=== PATIENT | male | born 1985 ===

== ENCOUNTER 2023-04-10 12:43 | Inpatient (IN) | payer MEDICAID, OTHER, SELFPAY ==
[2023-04-10] VITALS (11 sets, daily range): BP systolic 117–132; BP diastolic 70–79; PULSE 80–112; RESP 16–19; TEMP 36.7–39.5; O2SAT 97–98; BMI 33.6; BMI 34.9
--- NOTE | ~2023-04-10 | CT_ITS ---
EXAMINATION: CT ABDOMEN AND PELVIS WITH CONTRAST CLINICAL INFORMATION: Right lower quadrant abdominal pain COMPARISON: None available. TECHNIQUE: Multidetector volumetric images were obtained from the superior aspect of the liver through the pubic symphysis following administration 85 mL of Omnipaque 350 intravenous contrast. Sagittal and coronal reformatted images were obtained on the technologist's workstation. Oral contrast: No This CT examination was performed using dose optimization techniques as appropriate, variously including the following: *Automated exposure control *Adjustment of mA and/or kV according to patient size (this includes techniques or standardized protocols for targeted exams where dose is matched to indication/reason for exam; i.e. extremities or head) *Use of iterative reconstruction technique DLP: 573 mGy-cm FINDINGS: LUNG BASES: There is bilateral lower lobe atelectasis/scarring. The heart size is normal. LIVER, GALLBLADDER, AND BILIARY TREE: The liver is normal size, shape and diffusely attenuated. No focal lesion or intrahepatic ductal dilatation seen. The gallbladder is unremarkable with no evidence of radiopaque gallstones, gallbladder wall thickening, or obvious pericholecystic inflammatory changes. PANCREAS: Unremarkable. SPLEEN: Unremarkable. ADRENAL GLANDS: Unremarkable. KIDNEYS AND URETERS: The kidneys are normal in size, shape, and attenuation. No hydronephrosis, hydroureter, or calculi seen. No perinephric stranding. BLADDER: Unremarkable. GASTROINTESTINAL TRACT: The appendix is long and distended. Appendix fat stranding and focal air collection consistent perforation. Findings are consistent with acute appendicitis. There are a few phleboliths in the appendix This is best appreciated on coronal image 27/6-34/6 and sagittal image 80/7 through 69/7. There is mild stasis and distention of the cecum and minimal right perihepatic and pericecal fluid collection. There is small bowel stasis as well with multiple dilated small bowel loops. The stomach is nondistended and appears unremarkable. Diffuse haziness likely edema or inflammation is seen throughout the peritoneal in the midabdomen. ABDOMINAL WALL: No significant hernia is appreciated. LYMPH NODES: Normal. VASCULAR: Unremarkable. PELVIC VISCERA: Unremarkable. OSSEOUS STRUCTURES: Unremarkable. CT/CT abdomen pelvis w IV con IMPRESSION: Distended long appendix with acute appendicitis with perforation resulting in loculated air-fluid collection. Small fluid collection is seen around the liver and pelvis. There is significant mesenteric haziness likely inflammatory change. There is reactive dilation of small bowel loops and cecum. As well as reactive mild mural thickening of sigmoid colon is noted. Diffuse hepatic steatosis without distention. Results were immediately called to referring /[employer]ENT INSTALLER Warren Anderson at 4:12 PM. Fleischner guidelines were followed.
--- NOTE | ~2023-04-10 | XR_ITS ---
EXAMINATION: XR ABDOMEN KUB CLINICAL INDICATION: Postoperative ileus COMPARISON: Previous CT of the abdomen and pelvis 04/10/2023 TECHNIQUE: AP view of the abdomen. FINDINGS: Nasogastric tube projects over the stomach. Air-filled distended loops of small bowel probably representing an ileus. Surgical drain in the pelvis and lower midline skin chas. No definite free air. Bony structures are normal. XR/XR KUB IMPRESSION: Probable postoperative ileus.
--- NOTE | ~2023-04-10 | CT_ITS ---
EXAMINATION: CT ABDOMEN AND PELVIS WITH CONTRAST CLINICAL INFORMATION: Postop ileus. Status post appendectomy. COMPARISON: CT abdomen and pelvis 04/10/2023 TECHNIQUE: Multidetector volumetric images were obtained from the superior aspect of the liver through the pubic symphysis following administration 85 mL of Omnipaque 350 intravenous contrast. Sagittal and coronal reformatted images were obtained on the technologist's workstation. Oral contrast: No This CT examination was performed using dose optimization techniques as appropriate, variously including the following: *Automated exposure control *Adjustment of mA and/or kV according to patient size (this includes techniques or standardized protocols for targeted exams where dose is matched to indication/reason for exam; i.e. extremities or head) *Use of iterative reconstruction technique DLP: 493 mGy-cm FINDINGS: LUNG BASES: There is bilateral lower lobe dependent consolidation/atelectasis. Heart size is normal. LIVER, GALLBLADDER, AND BILIARY TREE: The liver is normal in size, shape, and diffuse hypo-attenuation. The liver is diffusely attenuated from focal fatty infiltration. No intrahepatic ductal dilatation seen. There is minimal perihepatic fluid. The gallbladder is unremarkable with no evidence of radiopaque gallstones, gallbladder wall thickening, or obvious pericholecystic inflammatory changes. PANCREAS: Unremarkable. SPLEEN: Unremarkable. ADRENAL GLANDS: Unremarkable. KIDNEYS AND URETERS: The kidneys are normal in size, shape, and attenuation. No hydronephrosis, hydroureter, or calculi seen. No perinephric stranding. BLADDER: Unremarkable. GASTROINTESTINAL TRACT: Appendix has been removed. There is a long [place] drain extending from the pelvis into the left upper quadrant.. Punctate scattered gas is seen in left pelvis and mid abdomen from recent surgery. There are multiple dilated small bowel loops and right colon likely ileus. A nasogastric tube tip is noted in the stomach. ABDOMINAL WALL: Postsurgical changes are seen in lower anterior midline abdomen. Prominent left inguinal canal with fat is noted. LYMPH NODES: Normal. VASCULAR: Unremarkable. PELVIC VISCERA: Unremarkable. OSSEOUS STRUCTURES: No aggressive lytic or sclerotic process seen. CT/CT abdomen pelvis w IV con IMPRESSION: Interval appendectomy with diffuse right colonic and small bowel ileus. Postsurgical punctate gas is seen scattered in the pelvis and abdomen with minimal right hepatic fluid collection. There is bilateral lower lobe dependent consolidation/atelectasis which has progressed since 04/10/2023. Diffuse fatty liver. Fleischner guidelines were followed.
--- NOTE | 2023-04-10 13:11 | ED.GENADULT ---
HPI - General Adult General Chief complaint: Abdominal Pain Stated complaint: Fever/Diarrhea/Nausea Time Seen by Provider: 04/10/23 14:53 Source: patient and contract management specialist Mode of arrival: ambulatory Limitations: no limitations History of Present Illness HPI narrative: 29-year-old French-speaking male with no medical history presents to the ER for evaluation of worsening right lower quadrant abdominal pain for the last 3 days. He developed nausea and vomiting 3 days ago which has since resolved. He states he has been having significant episodes of dark loose and watery stools. He states the pain in his right lower abdomen has been worsening for the last 3 days. The pain is worse with movement and ambulation. Pain is an 8/10, it is constant and stabbing in nature. He has been having subjective fevers and chills as well. No known sick contacts at home. MD complaint: Right lower quadrant abdominal pain, nausea, vomiting, diarrhea Onset (ago): day(s) (3) Location: abdomen Radiation: non-radiation Severity: severe Severity scale (1-10): 8 Quality: stabbing Pain Consistency: constant Relieving factors: none Exacerbating factors: movement Associated symptoms: fever/chills, loss of appetite, malaise, nausea/vomiting and weakness Treatments prior to arrival: none Related Data Home Medications Medication Instructions Recorded Confirmed bismuth subsalicylate 525 mg/15 mL 525 mg PO Q30M PRN Diarrhea / 04/10/23 04/10/23 oral suspension upset stomach ibuprofen 200 mg tablet 400 mg PO Q8H PRN Pain 04/10/23 04/10/23 Allergies Allergy/AdvReac Type Severity Reaction Status Date / Time No Known Allergies Allergy Verified 04/10/23 13:07 Review of Systems Review of Systems: Yes all other systems are reviewed and are negative [facility] Social History Social History Smoked in Last 30 Days: Yes Use of substances other than those prescribed or required for medical reasons: No Advance Directives: No Physical Exam ED Vital Signs: Vital Signs - 24 hr 04/10/23 13:07 04/10/23 14:52 04/10/23 17:05 Temperature 98.6 F 103.1 F H 101.3 F H Pulse Rate 112 H 80 Respiratory Rate 16 18 Blood Pressure 117/76 123/70 Pulse Oximetry 98 98 Oxygen Delivery Method Room Air Room Air BMI result Body Mass Index 33.6 Appearance: Alert. Oriented X3. Appears uncomfortable and in pain Head: normocephalic, atraumatic. Eyes: Pupils equal, round and reactive to light. ENT: Pharynx normal. No tonsillar swelling or exudate. Neck: Normal inspection. Neck supple. CVS: Tachycardic, regular rhythm Pulses normal. Respiratory: No respiratory distress. Breath sounds normal. Abdomen: abd is somewhat tense w/ RLQ tenderness to light touch w/ guarding and rebound, normal active +BS x4 Skin: Skin warm and dry. Normal skin color. Normal skin turgor. No rashes. Extremities: No lower extremity edema. No joint swelling. Neuro/psych: Oriented X 3. No motor deficit. No sensory deficit. CN II-XII intact. Normal speech and cognition. Slow but steady gait Course Course Course Narrative: RME: 37 yold male RLQ abdominal pain, fever, diarrhea for 3 days. No one else at home sick. Labs ordered Medications Administered Generic Name Dose Route Start Last Admin Trade Name Freq PRN Reason Stop Dose Admin Lactated Ringer's 1,000 mls @ 100 mls/hr 04/10/23 17:00 04/10/23 17:01 Lr IVCONT 100 mls/hr .Q10H YESICA Administration Discontinued Medications Generic Name Dose Route Start Last Admin Trade Name Freq PRN Reason Stop Dose Admin Acetaminophen 975 mg 04/10/23 14:54 04/10/23 15:33 Acetaminophen 325 Mg Tablet PO 04/10/23 14:55 975 mg ONCE ONE Administration Sodium Chloride 1,000 mls @ 999 mls/hr 04/10/23 15:00 04/10/23 17:06 Ns IVCONT 04/10/23 16:00 Infused .Q1H1M YESICA Infusion Piperacillin Sod/Tazobactam 50 mls @ 100 mls/hr 04/10/23 14:55 04/10/23 16:02 Sod 3.375 gm/ Sodium Chloride IV 04/10/23 15:24 Infused ONCE ONE Infusion Sodium Chloride 1,000 mls @ 999 mls/hr 04/10/23 15:00 04/10/23 17:06 Ns IVCONT 04/10/23 16:00 Infused .Q1H1M YESICA Infusion Iohexol 100 ml 04/10/23 14:48 04/10/23 14:49 Iohexol 350 Mg/Ml 100 Ml Infus..Btl IV 04/10/23 14:49 85 ml ONCE ONE Administration Morphine Sulfate 4 mg 04/10/23 15:15 04/10/23 15:31 Morphine Sulfate 4 Mg/Ml Cartridge IVPUSH 04/10/23 15:16 4 mg ONCE ONE Administration Protocol Ondansetron HCl 4 mg 04/10/23 15:15 04/10/23 15:32 Ondansetron Hcl 4 Mg/2 Ml Vial IVPUSH 04/10/23 15:16 4 mg ONCE ONE Administration Medical Decision Making Medical Decision Making [facility] Narrative: 29-year-old male with no medical history presents to the ER for evaluation of 3 days of worsening right lower quadrant pain, fever, nausea, vomiting, diarrhea. He is febrile to 103 on examination with a very tender right lower quadrant on exam. He is tense and guarding with rebound tenderness. Lab workup showing a leukocytosis of 22,000. CT scan w/ perforated appendix. Dr. Mendoza aware and evaluated the patient. plan for admission with CT guided drainage. continue abx, ivf, pain control. Differential Diagnosis Differential Diagnoses: The differential diagnosis associated with the presentation includes Acute appendicitis, appendiceal rupture, diverticulitis, abdominal abscess, acute cholecystitis, sepsis, UTI, pyelonephritis, infected kidney stone Admission/Observation Consideration of admission/observation: Escalation of care including admission/observation considered Patient meeting sepsis criteria requiring admission for further management and pain control Consult Healthcare Provider Management of the patient was discussed with: Senior Clinical Project Manager Dr. Mendoza Lab Data [facility] Lab Attestation statement: I reviewed the patient's lab results. Leukocytosis, mild anemia 04/10/23 13:25 04/10/23 13:25 Labs: Lab Results 04/10/23 04/10/23 04/10/23 Range/Units 13:25 13:25 13:25 WBC 22.0 H (4.8-10.8) X10*3/uL RBC 4.41 L (4.60-5.80) X10*6/uL Hgb 13.4 L (14.0-18.0) g/dl Hct 39.2 L (42.0-52.0) % MCV 88.9 (80.0-98.0) fL MCH 30.4 (27.0-33.0) pg MCHC 34.2 (31.0-36.0) g/dl RDW 11.7 (11.0-16.0) % Plt Count 203 (160-400) X10*3/uL MPV 10.6 (9.4-12.4) fL Immature Gran % (Auto) 1.2 H (0.0-0.4) % Neut % (Auto) 88.4 H (45-73) % Lymph % (Auto) 3.9 L (20-40) % [place] % (Auto) 6.3 (2-11) % Eos % (Auto) 0.0 (0-4) % Baso % (Auto) 0.2 (0-2) % Lymph # (Auto) 0.9 L (1.2-4.9) X10*3/uL [place] # (Auto) 1.4 H (0.1-1.2) X10*3/uL Eos # (Auto) 0.0 (0.0-0.4) X10*3/uL Baso # (Auto) 0.0 (0.0-0.2) X10*3/uL Abs Immat Gran (auto) 0.27 H (0.00-0.03) X10*3/uL Absolute Neuts (auto) 19.5 H (2.0-8.3) x10*3/uL Absolute Nucleated RBC 0.000 (0.0-0.012) X10*3/uL Nucleated RBC % (auto) 0.0 (0.0-0.2) /100WBC Sodium 134 L (135-145) mmol/L Potassium 3.8 (3.3-5.1) mmol/L Chloride 101 (96-108) mmol/L Carbon Dioxide 24 (22-29) mmol/L Anion Gap 13 (12-20) BUN 12 (9-16) mg/dL Creatinine 0.81 (0.5-1.4) mg/dL Estim Creat Clear Calc 115.5 Estimated GFR > 60 Random Glucose 125 H (60-115) mg/dL Calcium 9.6 (8.4-10.2) mg/dL Total Bilirubin 1.2 H (0.0-1.0) mg/dL AST 24 (5-37) U/L ALT 42 H (0-40) U/L Alkaline Phosphatase 87 (39-117) U/L Total Protein 7.6 (6.5-8.0) g/dL Albumin 4.3 (3.5-5.0) g/dL Lipase 11 (8-78) U/L Urine Color Urine Appearance Urine pH (5.0-9.0) Ur Specific [place] (1.005-1.025) Urine Protein (Neg-Trace) mg/dL Urine Glucose (UA) (Negative) mg/dL Urine Ketones (Negative) mg/dL Urine Blood (Negative) Urine Nitrite (Negative) Ur Leukocyte Esterase (Negative) Urine RBC (0-2) /HPF Urine WBC (0-5) /HPF Ur Squamous Epith Cells (0-2) /HPF Urine Bacteria (None Seen) Hyaline Casts (0-2) /LPF COVID-19 (LAZARO) (Negative) COVID-19 Clin Com Influenza Type A (CRISTINA) Negative (Negative) Influenza Type B (CRISTINA) Negative (Negative) Influenza A & B Note See Note 04/10/23 04/10/23 Range/Units 13:25 13:25 WBC (4.8-10.8) X10*3/uL RBC (4.60-5.80) X10*6/uL Hgb (14.0-18.0) g/dl Hct (42.0-52.0) % MCV (80.0-98.0) fL MCH (27.0-33.0) pg MCHC (31.0-36.0) g/dl RDW (11.0-16.0) % Plt Count (160-400) X10*3/uL MPV (9.4-12.4) fL Immature Gran % (Auto) (0.0-0.4) % Neut % (Auto) (45-73) % Lymph % (Auto) (20-40) % [place] % (Auto) (2-11) % Eos % (Auto) (0-4) % Baso % (Auto) (0-2) % Lymph # (Auto) (1.2-4.9) X10*3/uL [place] # (Auto) (0.1-1.2) X10*3/uL Eos # (Auto) (0.0-0.4) X10*3/uL Baso # (Auto) (0.0-0.2) X10*3/uL Abs Immat Gran (auto) (0.00-0.03) X10*3/uL Absolute Neuts (auto) (2.0-8.3) x10*3/uL Absolute Nucleated RBC (0.0-0.012) X10*3/uL Nucleated RBC % (auto) (0.0-0.2) /100WBC Sodium (135-145) mmol/L Potassium (3.3-5.1) mmol/L Chloride (96-108) mmol/L Carbon Dioxide (22-29) mmol/L Anion Gap (12-20) BUN (9-16) mg/dL Creatinine (0.5-1.4) mg/dL Estim Creat Clear Calc Estimated GFR Random Glucose (60-115) mg/dL Calcium (8.4-10.2) mg/dL Total Bilirubin (0.0-1.0) mg/dL AST (5-37) U/L ALT (0-40) U/L Alkaline Phosphatase (39-117) U/L Total Protein (6.5-8.0) g/dL Albumin (3.5-5.0) g/dL Lipase (8-78) U/L Urine Color Dark Yellow Urine Appearance Clear Urine pH 6.0 (5.0-9.0) Ur Specific [place] 1.020 (1.005-1.025) Urine Protein 100 (2+) H (Neg-Trace) mg/dL Urine Glucose (UA) Negative (Negative) mg/dL Urine Ketones 15 (Negative) mg/dL Urine Blood Negative (Negative) Urine Nitrite Negative (Negative) Ur Leukocyte Esterase Trace H (Negative) Urine RBC 0-2 (0-2) /HPF Urine WBC 0-5 (0-5) /HPF Ur Squamous Epith Cells 0-2 (0-2) /HPF Urine Bacteria None Seen (None Seen) Hyaline Casts 3-5 (0-2) /LPF COVID-19 (LAZARO) Negative (Negative) COVID-19 Clin Com See Note Influenza Type A (CRISTINA) (Negative) Influenza Type B (CRISTINA) (Negative) Influenza A & B Note Independent Interpretation I performed an independent interpretation of an: CT Scan Interpretation: significant fluid collection in the RLQ c/w appendicitis w/ rupture, agree w/ radiology read Radiology Impression Discussion of test interpretation with radiology: I have reviewed the radiologist's reading. Radiologist Impression: EXAMINATION: CT ABDOMEN AND PELVIS WITH CONTRAST? CLINICAL INFORMATION: Right lower quadrant abdominal pain COMPARISON: None available. TECHNIQUE: Multidetector volumetric images were obtained from the superior aspect of the liver through the pubic symphysis following administration 85 mL of Omnipaque 350 intravenous contrast. Sagittal and coronal reformatted images were obtained on the technologist's workstation.? Oral contrast: No This CT examination was performed using dose optimization techniques as appropriate, variously including the following: *Automated exposure control *Adjustment of mA and/or kV according to patient size (this includes techniques or standardized protocols for targeted exams where dose is matched to indication/reason for exam; i.e. extremities or head) *Use of iterative reconstruction technique DLP: 573 mGy-cm FINDINGS: LUNG BASES: There is bilateral lower lobe atelectasis/scarring. The heart size is normal.? LIVER, GALLBLADDER, AND BILIARY TREE: The liver is normal size, shape and diffusely attenuated. No focal lesion or intrahepatic ductal dilatation seen. The gallbladder is unremarkable with no evidence of radiopaque gallstones, gallbladder wall thickening, or obvious pericholecystic inflammatory changes.? PANCREAS: Unremarkable.? SPLEEN: Unremarkable.? ADRENAL GLANDS: Unremarkable.? KIDNEYS AND URETERS: The kidneys are normal in size, shape, and attenuation. No hydronephrosis, hydroureter, or calculi seen. No perinephric stranding. ? BLADDER: Unremarkable.? GASTROINTESTINAL TRACT: The appendix is long and distended. Appendix fat stranding and focal air collection consistent perforation. Findings are consistent with acute appendicitis. There are a few phleboliths in the appendix This is best appreciated on coronal image 27/6-34/6 and sagittal image 80/7 through 69/7. There is mild stasis and distention of the cecum and minimal right perihepatic and pericecal fluid collection. There is small bowel stasis as well with multiple dilated small bowel loops. The stomach is nondistended and appears unremarkable. Diffuse haziness likely edema or inflammation is seen throughout the peritoneal in the midabdomen. ABDOMINAL WALL: No significant hernia is appreciated.? LYMPH NODES: Normal. VASCULAR: Unremarkable. PELVIC VISCERA: Unremarkable.? OSSEOUS STRUCTURES: Unremarkable.? CT/CT abdomen pelvis w IV con IMPRESSION: Distended long appendix with acute appendicitis with perforation resulting in loculated air-fluid collection. Small fluid collection is seen around the liver and pelvis. There is significant mesenteric haziness likely inflammatory change. There is reactive dilation of small bowel loops and? cecum. As well as reactive mild mural thickening of sigmoid colon is noted. Independent Historian Clinical information obtained from an independent historian. History obtained from or confirmed by: Spouse Prescription Management I considered prescription management with: Pain Medication and Antibiotic Critical Care Time Critical Care Time Critical Care Time: Yes Total Critical Care Time: 39 Attestation: I have personally provided critical care time exclusive of time spent on separately billable procedures. Time includes review of lab data, radiology results, discussion with consultants, and monitoring for potential decompensation. Intervention performed as documented. Discharge Plan Discharge Clinical Impression: Acute appendicitis with rupture Patient Disposition: Admitted As Inpatient
[2023-04-10 13:37] LABS: MANUAL DIFF FLAG NO
[2023-04-10 13:39] LABS: Basophils Percent Auto 0.2 % (0-2); Hematocrit 39.2 % (42.0-52.0); Hemoglobin 13.4 g/dl (14.0-18.0); Imm Gran Abs Auto 0.27 X10*3/uL (0.00-0.03); Imm Gran Pct Auto 1.2 % (0.0-0.4); Lymphocytes Absolute Auto 0.9 X10*3/uL (1.2-4.9); Lymphocytes Percent Auto 3.9 % (20-40); Mean Corpuscular HGB Conc 34.2 g/dl (31.0-36.0); Mean Corpuscular Hemoglobin 30.4 pg (27.0-33.0); Mean Corpuscular Volume 88.9 fL (80.0-98.0); Mean Platelet Volume 10.6 fL (9.4-12.4); Monocytes Absolute Auto 1.4 X10*3/uL (0.1-1.2); Monocytes Percent Auto 6.3 % (2-11); Neutrophils Absolute Auto 19.5 x10*3/uL (2.0-8.3); Neutrophils Percent Auto 88.4 % (45-73); Platelet Count 203 X10*3/uL (160-400); Red Blood Count 4.41 X10*6/uL (4.60-5.80); Red Cell Distribution Width 11.7 % (11.0-16.0)
[2023-04-10 13:40] LABS: Appearance Urine Clear; Color Urine Dark Yellow; Glucose Urine UA Negative (Negative); Leukocyte Esterase Urine Trace (Negative); Nitrite Urine Negative (Negative); UMIC TRIGGER UACC YES; Urine Blood Negative (Negative); Urine Ketones 15 mg/dL (Negative); Urine Protein 100 (2+) mg/dL (Neg-Trace)
[2023-04-10 13:42] LABS: Bacteria Urine None Seen (None Seen); RBC Urine 0-2 /HPF (0-2); Squamous Epithelial Cell Urine 0-2 /HPF (0-2); WBC Urine 0-5 /HPF (0-5)
[2023-04-10 13:54] LABS: COVID-19 Test Negative (Negative); IDNOW Serial# 08D9AD1C
[2023-04-10 13:56] LABS: IDNOW Serial# BCCEAD1C; Influenza A Negative (Negative); Influenza B2 Negative (Negative)
[2023-04-10 14:14] LABS: Alanine Aminotransferase 42 U/L (0-40); Albumin Level 4.3 g/dL (3.5-5.0); Alkaline Phosphatase 87 U/L (39-117); Anion Gap 13 (12-20); Aspartate Amino Transferase 24 U/L (5-37); Bilirubin Total 1.2 mg/dL (0.0-1.0); Blood Urea Nitrogen 12 mg/dL (9-16); Calcium 9.6 mg/dL (8.4-10.2); Carbon Dioxide 24 mmol/L (22-29); Chloride 101 mmol/L (96-108); Creatinine Clr Calc Pharmacy 115.5; Estimated Glomerular Filt Rate > 60; Glucose Random 125 mg/dL (60-115); Lipase 11 U/L (8-78); Potassium 3.8 mmol/L (3.3-5.1); Sodium 134 mmol/L (135-145); Total Protein 7.6 g/dL (6.5-8.0)
[2023-04-10] MEDS: iohexoL 350 MG/ML 100 ML INFUS..BTL IV (14:49)
--- NOTE | 2023-04-10 15:03 | PC.NURSE ---
Alert and oriented, patient only lithuanian speaking. Information obtained via regulatory compliance director. Patient complaining of 8/10 right sided abdominal pain. States pain and blood in urine. States pain started on tuesday with n/v/d and has not gotten any better. temp 102.1 , provider aware. IV in right forearm flushing without difficulty.
[2023-04-10] MEDS: Morphine Sulfate 4 MG/ML CARTRIDGE IVPUSH ×2 (15:31→21:05)
[2023-04-10] MEDS: Piperacillin Sodium/Tazobactam 3.375 GM in 0.9 % Sodium Chloride 50 ML IV ×2 (15:32→23:03)
[2023-04-10] MEDS: ondansetron HCL 4 MG/2 ML VIAL IVPUSH (15:32)
[2023-04-10] MEDS: Acetaminophen 325 MG TABLET 975 MG PO (15:33)
[2023-04-10] MEDS: 0.9 % Sodium Chloride 1,000 ML 999 ML IVCONT ×2 (15:34→16:00)
--- NOTE | 2023-04-10 16:20 | P.HPGS_ITS ---
History of Present Illness History of Present Illness Date of Service: 04/12/23 Chief complaint: perforated appendicitis Narrative: Dayron Torres is a 37 year old male here in the ED for right sided abdominal pain x 3 days. He says this has been persistent. He describes some nausea and vomitting 2 days ago. He feels that the pain on the right side has been worsening. He says he has never had similar episodes in the past. He denies signficant medical problems. He has never had abdominal surgery He does have some chills at home. He also describes some loose stools. He does not have any primary care physician. Review of Systems Constitutional: Constitutional: Reports chills and Reports fever(s) Cardiovascular: Cardiovascular: Denies chest pain, Denies dyspnea and Denies dyspnea on exertion Respiratory: Respiratory: Denies cough, Denies dyspnea and Denies dyspnea on exertion Gastrointestinal: Gastrointestinal: Denies hematochezia and Denies change in bowel habits Genitourinary: Genitourinary: Denies hematuria and Denies difficulty urinating Musculoskeletal: Musculoskeletal: Denies back pain and Denies limited range of motion Neurologic: Denies focal weakness and Denies convulsions Psychiatric: Psychiatric: Denies depression and Denies mood swings PMFSH Social History Social History Household Members: Spouse Housing: House Do you presently have visiting nurse or other home services: No Patient Tobacco Use Status: Never used Tobacco Smoked in Last 30 Days: Yes Use of substances other than those prescribed or required for medical reasons: No Currently Displaying Signs/Symptoms of Drug Intoxication Withdrawal: No Have you been hit, kicked, punched, or otherwise hurt by someone within the past year? If so, by whom?: No Do you feel safe in your current relationship?: Yes Is there a partner from a previous relationship who is making you feel unsafe now?: No Are you made to feel afraid or neglected: No Advance Directives: No Advance Directives Information Provided: No Do you have thoughts of harming others: None Do you have a plan to hurt others: No Plan Recently lost weight without trying: No Eating poorly because of decreased appetite: No Nutrition Risks: No Nutritional Risk Poor oral hygiene: No service: No Meds Allergies Allergy/AdvReac Type Severity Reaction Status Date / Time No Known Allergies Allergy Verified 04/10/23 13:07 Active Medications: Current Medications Pharmacy Consult (Consult Rx Perform Med Rec) 1 each MISCELLANE ONCE PRN PRN Reason: Consult order Home Medications Medication Instructions Recorded Confirmed Last Taken Type bismuth subsalicylate 525 mg/15 mL 525 mg PO Q30M PRN Diarrhea / 04/10/23 04/10/23 Unknown History oral suspension upset stomach ibuprofen 200 mg tablet 400 mg PO Q8H PRN Pain 04/10/23 04/10/23 Unknown History Physical Exam Vital Signs: Vital Signs: Last Vital Signs Temp 103.1 F H 04/10/23 14:52 Pulse 80 04/10/23 14:52 Resp 18 04/10/23 14:52 BP 123/70 04/10/23 14:52 Pulse Ox 98 04/10/23 14:52 O2 Del Method Room Air 04/10/23 14:52 BMI result Body Mass Index 33.6 Const: Other: appears uncomfortable General: no acute distress Orientation/consciousness: patient oriented x3 Neck: Neck: Yes no lymphadenopathy Resp: Auscultation: clear to auscultation bilaterally Cardio: Rhythm: regular rhythm GI: Other: very tender on the right abdomen Palpation (GI): Soft to palpation, Tenderness to palpation present (GI), Guarding due to palpation present (GI) and not rigid Neuro: General: patient oriented x3 Results Results Labs: Short CBC 04/10/23 Range/Units 13:25 WBC 22.0 H (4.8-10.8) X10*3/uL Hgb 13.4 L (14.0-18.0) g/dl Hct 39.2 L (42.0-52.0) % Plt Count 203 (160-400) X10*3/uL BMP 04/10/23 13:25 Sodium 134 L Potassium 3.8 Chloride 101 Carbon Dioxide 24 BUN 12 Creatinine 0.81 Calcium 9.6 Liver Function 04/10/23 Range/Units 13:25 Total Bilirubin 1.2 H (0.0-1.0) mg/dL AST 24 (5-37) U/L ALT 42 H (0-40) U/L Alkaline Phosphatase 87 (39-117) U/L Albumin 4.3 (3.5-5.0) g/dL Urine 04/10/23 Range/Units 13:25 Urine Color Dark Yellow Urine Appearance Clear Urine pH 6.0 (5.0-9.0) Ur Specific [place] 1.020 (1.005-1.025) Urine Protein 100 (2+) H (Neg-Trace) mg/dL Urine Glucose (UA) Negative (Negative) mg/dL Assessment and Plan (1) Acute appendicitis with rupture: Status: Acute 37-year-old male with right-sided abdominal pain, fever, leukocytosis, and significant tenderness. I have reviewed his CAT scan with the radiologist. This is consistent with perforated appendicitis. This a lot of inflammatory changes in the appendix and the cecum. There may be small pockets of abscesses in the area as well. I explained to the patient that it may be best to proceed with laparoscopic appendectomy and possible open. He understands that because of the dense inflammatory changes, there is a high likelihood that he may need to proceed with the laparotomy incision. There is a chance that we may need to resect part of the cecum as well because of the severe inflammatory changes . I also explained to him the risks including but not limited to bleeding, infections, injury to other organs including the rest of the bowel, urinary tract, staple line leak, blood clots, pneumonia, obstruction, ileus, as well as the benefits and alternatives. He seems to understand well and wants to proceed His was with him during the discussion. Time Spent With Patient Time: Total time managing care of this patient today ____ minutes. Quality Stroke Does the patient have a stroke diagnosis?: No VTE Prior VTE?: No VTE Risk Level:: Medical - low VTE Device Contraindication: N/A - Device Ordered VTE Drug Contraindication: Treatment Not Indicated Procedures Date of Service Date of Service: 04/12/23
[2023-04-10] MEDS: Lactated Ringers 1,000 ML 100 ML IVCONT (17:01)
--- NOTE | 2023-04-10 17:11 | PHA.MEDREC ---
Pharmacy Consult ? Medication Reconciliation Pharmacy has completed the medication reconciliation. Utilized glass belt s[employer] services. Spoke to patient to confirm meds.
--- NOTE | 2023-04-10 17:35 | P.CONAN_ITS ---
[facility] Active Problems Active Problems: All Active Problems (Updated 04/10/23 @ 16:20 by AASHISH Andrade) Acute appendicitis with rupture (Acute) Past Medical History Functional capacity: independent ambulation Social History Social History Smoked in Last 30 Days: Yes Use of substances other than those prescribed or required for medical reasons: No Advance Directives: No Meds Allergies Allergy/AdvReac Type Severity Reaction Status Date / Time No Known Allergies Allergy Verified 04/10/23 13:07 Active Medications: Current Medications Lactated Ringer's (Lr) 1,000 mls @ 100 mls/hr IVCONT .Q10H YESICA Last Admin: 04/10/23 17:01 Dose: 100 mls/hr Piperacillin Sod/Tazobactam (Sod 3.375 gm/ Sodium Chloride) 50 mls @ 100 mls/hr IV Q6H YESICA Morphine Sulfate (Morphine Sulfate 4 Mg/Ml Cartridge) 4 mg IVPUSH Q4H PRN; Protocol PRN Reason: pain, severe Pharmacy Consult (Consult Rx Perform Med Rec) 1 each MISCELLANE ONCE PRN PRN Reason: Consult order Sodium Chloride (0.9 % Sodium Chloride Flush 3 Ml Syringe) 3 ml IVFLUSH QSHIFT YESICA Home Medications Medication Instructions Recorded Confirmed Last Taken Type bismuth subsalicylate 525 mg/15 mL 525 mg PO Q30M PRN Diarrhea / 04/10/23 04/10/23 Unknown History oral suspension upset stomach ibuprofen 200 mg tablet 400 mg PO Q8H PRN Pain 04/10/23 04/10/23 Unknown History Exam Exam Date and Time: April 10, 2023 0765 Height,Weight and Vital Signs: Height 5 ft 2 in Weight 83.3 kg Last Vital Signs Temp 101.3 F H 04/10/23 17:05 Pulse 80 04/10/23 14:52 Resp 18 04/10/23 14:52 BP 123/70 04/10/23 14:52 Pulse Ox 98 04/10/23 14:52 O2 Del Method Room Air 04/10/23 14:52 Pertinent Lab Results Pertinent Lab Results: Laboratory Tests 04/10/23 04/10/23 04/10/23 13:25 13:25 13:25 WBC 22.0 H RBC 4.41 L Hgb 13.4 L Hct 39.2 L MCV 88.9 MCH 30.4 MCHC 34.2 RDW 11.7 Plt Count 203 MPV 10.6 Immature Gran % (Auto) 1.2 H Neut % (Auto) 88.4 H Lymph % (Auto) 3.9 L [place] % (Auto) 6.3 Eos % (Auto) 0.0 Baso % (Auto) 0.2 Lymph # (Auto) 0.9 L [place] # (Auto) 1.4 H Eos # (Auto) 0.0 Baso # (Auto) 0.0 Abs Immat Gran (auto) 0.27 H Absolute Neuts (auto) 19.5 H Absolute Nucleated RBC 0.000 Nucleated RBC % (auto) 0.0 Sodium 134 L Potassium 3.8 Chloride 101 Carbon Dioxide 24 Anion Gap 13 BUN 12 Creatinine 0.81 Estim Creat Clear Calc 115.5 Estimated GFR > 60 Random Glucose 125 H Calcium 9.6 Total Bilirubin 1.2 H AST 24 ALT 42 H Alkaline Phosphatase 87 Total Protein 7.6 Albumin 4.3 Lipase 11 Urine Color Urine Appearance Urine pH Ur Specific [place] Urine Protein Urine Glucose (UA) Urine Ketones Urine Blood Urine Nitrite Ur Leukocyte Esterase Urine RBC Urine WBC Ur Squamous Epith Cells Urine Bacteria Hyaline Casts COVID-19 (LAZARO) COVID-19 Clin Com Influenza Type A (CRISTINA) Negative Influenza Type B (CRISTINA) Negative Influenza A & B Note See Note 04/10/23 04/10/23 13:25 13:25 WBC RBC Hgb Hct MCV MCH MCHC RDW Plt Count MPV Immature Gran % (Auto) Neut % (Auto) Lymph % (Auto) [place] % (Auto) Eos % (Auto) Baso % (Auto) Lymph # (Auto) [place] # (Auto) Eos # (Auto) Baso # (Auto) Abs Immat Gran (auto) Absolute Neuts (auto) Absolute Nucleated RBC Nucleated RBC % (auto) Sodium Potassium Chloride Carbon Dioxide Anion Gap BUN Creatinine Estim Creat Clear Calc Estimated GFR Random Glucose Calcium Total Bilirubin AST ALT Alkaline Phosphatase Total Protein Albumin Lipase Urine Color Dark Yellow Urine Appearance Clear Urine pH 6.0 Ur Specific [place] 1.020 Urine Protein 100 (2+) H Urine Glucose (UA) Negative Urine Ketones 15 Urine Blood Negative Urine Nitrite Negative Ur Leukocyte Esterase Trace H Urine RBC 0-2 Urine WBC 0-5 Ur Squamous Epith Cells 0-2 Urine Bacteria None Seen Hyaline Casts 3-5 COVID-19 (LAZARO) Negative COVID-19 Clin Com See Note Influenza Type A (CRISTINA) Influenza Type B (CRISTINA) Influenza A & B Note Airway Mallampati Class: III TM Dist: >3cm Neck ROM: Full Heart: RRR Lungs: CTA Assessment and Plan Final Anesthetic Review Final Preanesthetic Review: Consent Obtained/Reviewed Patient Risk: Intermediate Procedure Risk: Intermediate Anesthetic Plan Anesthetic Plan: GA Disposition: Standard PACU
--- NOTE | 2023-04-10 18:01 | PC.NURSE ---
Report given to OR, transferred to OR by surgical team
--- NOTE | 2023-04-10 19:47 | P.OP_ITS ---
Operative Note Operative Note Date of Service: 04/10/23 Narrative: Preop diagnosis: Acute perforated appendicitis Postop diagnosis: Acute perforated appendicitis, with feculent and purulent collection, gangrenous appendix surrounded by matted loops of small bowel and mesentery and surrounding peritonitis; extraluminal stool around appendix seen Procedure: Attempted laparoscopic appendectomy, converted to open appendectomy via laparotomy incision Surgeon: Kingsley Mendoza MD The patient is a 37-year-old male seen in the ER because of abdominal pain on the right side for the past 3 days along with high fever and septic picture. CT scan showed perforated appendicitis with significant inflammatory changes surrounding the appendix and fluid collection. He understood the technique of appendectomy. He was aware of the risks, benefits, and alternatives He was brought the operating room. He was placed supine under general anesthesia via endotracheal tube. He was receiving scheduled Zosyn. A surgical time-out was done. A Arambula catheter been inserted I made a short supraumbilical incision using blade 15. And this was carried down through the full-thickness of the skin and thick subcutaneous fat down to the fascia. The fascia was incised. The peritoneum was entered. Through this incision a Carole port was introduced. Pneumoperitoneum was introduced to a pressure of 15 mm hg. From here on the rest of the procedure was done under vision with the 10 mm laparoscope. With laparoscopic visualization I inserted a 5/12 mm port on the left lower quadrant through a small stab incision. A 5 mm port was placed through a small incision in the suprapubic margin. Graspers were placed through these working ports The patient was placed in head-down and [id number] position. There was note of significant small bowel dilatation. The small bowel loops appeared to be matted and adherent to the mid abdomen and we could not achieve any adequate visualization nor safe mobilization so I medially decided that he had to convert to an open procedure. I made a generous midline incision a low abdomen using blade 10. And his care down with electrocautery through the full-thickness of the skin subcutaneous fat. This included the umbilical port site. I removed all ports at this point I divided to thick subcutaneous fat until a expose the fascia. The fascia was incised. The peritoneum was entered. The fascial incision extended to optimize the skin incision. Bookwalter retractors were applied Immediately, feculent smelling and purulent fluid was noted in the abdomen and we did cultures The up small-bowel was very matted in the mid abdomen. We had to do careful blunt dissection to separate the small bowel loops from within its other and there was note of more peritoneal fluid that appeared to be frequent and purulent in the mid abdomen. We had to do a lot of careful mobilization to separate the bowel loops until was able to see the retroperitoneal side of the mid abdomen and this was worried found the maximal inflammatory process. There was note of surrounding peritonitis including of the serosal side of the small bowel loops as well as the mesentery. There was note of thin feculent-looking fluid and pus within this area. We had to carefully suction this out and by doing so I was able to visualize what appeared to be gangrenous and perforated appendix. This was adherent to the posterior side of the mesentery of the adjacent small bowel loops and stuck to the retroperitoneum as well so wet to do careful blunt dissection with the finger to be able to visualize the entire appendix. I was able to eventually visualize the base. I proceeded to mobilize the entire appendix using the LigaSure to carefully separate and resected from its attached mesentery. I reached the base of the appendix. There was still a lot of heavy inflammatory changes in the area. I was able to pass a right angle clamp around the base of the appendix and this part although inflamed appear viable. I applied a right angle clamp at the base. I applied a suture ligature using a a Polysorb 3-0 stitch. I then ligated this as well using up Polysorb 2 0 tie. I imbricated the stump with seromuscular Polysorb 3-0 sutures to the serosa of the surrounding cecum Again this area appeared viable despite being inflamed with reactive peritonitis. I re-irrigated copiously and suctioned out irrigant fluid. I irrigated the pelvis as well as there was note of purulent fluid in this area as initially. Once the irrigant fluid appeared clear, I placed bowel loops back into the peritoneal cavity. I changed gloves. I applied a KWESI drain on the area of the stump of the appendix and this was brought out through the port site on the left lower quadrant port earlier, traversing into the pelvis 1st. I closed the fascia with the running Maxon 1 stitch. Skin closure was achieved on the incision with skin chas. I infiltrated the area with Marcaine 0.5% for postop analgesia. The KWESI drain had been secured to the skin with an anchori ng nylon 3-0 stitch. The procedure was then completed after application of dressings. The patient tolerated procedure well. There were no immediate complications. Initial and final counts of sponges and instruments were correct. Estimated blood loss about 25 cc The patient was extubated without difficulty and transferred to the recovery room with stable vital signs.
[2023-04-10] MEDS: Acetaminophen 1,000 MG/100 ML PIGGYBACK 400 MG IV (20:06)
[2023-04-10 20:16] LABS: CDiff Gene PCR NEGATIVE (Negative)
[2023-04-10] MEDS: fentaNYL citrate/PF 100 MCG/2 ML VIAL 25 MCG IVPUSH ×2 (20:27→20:33)
[2023-04-10] MEDS: oxyCODONE HCl Immed Release 5 MG TABLET 10 MG PO (22:52)
[2023-04-10] MEDS: 0.9 % Sodium Chloride Flush 3 ML SYRINGE IVFLUSH (23:01)
[2023-04-11] MEDS: Acetaminophen 1,000 MG/100 ML PIGGYBACK 400 MG IV ×4 (01:51→20:36)
[2023-04-11] MEDS: Piperacillin Sodium/Tazobactam 3.375 GM in 0.9 % Sodium Chloride 50 ML IV ×4 (03:14→21:08)
[2023-04-11] MEDS: Lactated Ringers 1,000 ML 100 ML IVCONT ×2 (03:46→12:22)
[2023-04-11 04:00] VITALS: BP 103/64; PULSE 74; RESP 19; TEMP 36.6; O2SAT 97
[2023-04-11 07:43] VITALS: BP 107/62; PULSE 71; RESP 16; TEMP 36.1; O2SAT 96
--- NOTE | 2023-04-11 08:26 | P.PNGS_ITS ---
Subjective Subjective Date of Service: 04/11/23 Interval history: states he feels much better pain control seems adequate Physical Exam Vital Signs: Vital Signs: Last Vital Signs Temp 96.9 F 04/11/23 07:43 Pulse 71 04/11/23 07:43 Resp 16 04/11/23 07:43 BP 107/62 04/11/23 07:43 Pulse Ox 96 04/11/23 07:43 O2 Del Method Nasal Cannula 04/11/23 07:43 O2 Flow Rate 2 04/11/23 07:43 BMI result Body Mass Index 34.9 Const: General: comfortable and no acute distress Resp: Effort & Inspection: normal respiratory effort Cardio: Rate: regular rate GI: Other: dressings dry, KWESI drain serosanguinous Palpation (GI): Soft to palpation, not firm and no guarding Objective Data Active Medications Fentanyl (Fentanyl Citrate/Pf 100 Mcg/2 Ml Vial) 25 mcg IVPUSH Q5M PRN; Protocol PRN Reason: Pain, Moderate(Pain Scale 4-6) Last Admin: 04/10/23 20:33 Dose: 25 mcg Documented By: ROBBIE Lactated Ringer's (Lr) 1,000 mls @ 100 mls/hr IVCONT .Q10H [facility] Last Admin: 04/11/23 03:46 Dose: 100 mls/hr Documented By: AMIRAH Piperacillin Sod/Tazobactam (Sod 3.375 gm/ Sodium Chloride) 50 mls @ 100 mls/hr IV Q6H [facility] Last Infusion: 04/11/23 03:45 Dose: 0 mls/hr Documented By: AMIRAH Acetaminophen (irmev) 1,000 mg in 100 mls @ 400 mls/hr IV Q6H [facility] Stop: 04/11/23 20:14 Last Infusion: 04/11/23 02:13 Dose: 0 mls/hr Documented By: AMIRAH Morphine Sulfate (Morphine Sulfate 4 Mg/Ml Cartridge) 4 mg IVPUSH Q4H PRN; Protocol PRN Reason: pain, severe Last Admin: 04/10/23 21:05 Dose: 4 mg Documented By: AMIRAH Ondansetron HCl (Ondansetron Hcl 4 Mg/2 Ml Vial) 4 mg IVPUSH ONCE PRN PRN Reason: Nausea and Vomiting Ondansetron HCl (Ondansetron Hcl 4 Mg/2 Ml Vial) 4 mg IVPUSH Q8H PRN PRN Reason: nausea Oxycodone HCl (Oxycodone Hcl Immed Release 5 Mg Tablet) 10 mg PO Q4H PRN PRN Reason: pain, moderate Last Admin: 04/10/23 22:52 Dose: 10 mg Documented By: AMIRAH Pharmacy Consult (Consult Rx Perform Med Rec) 1 each MISCELLANE ONCE PRN PRN Reason: Consult order Sodium Chloride (0.9 % Sodium Chloride Flush 3 Ml Syringe) 3 ml IVFLUSH [facility] Last Admin: 04/10/23 23:01 Dose: 3 ml Documented By: AMIRAH Labs 04/10/23 13:25 04/10/23 13:25 Labs: Laboratory Results - last 24 hr 04/10/23 04/10/23 04/10/23 13:25 13:25 13:25 MCV 88.9 MCH 30.4 MCHC 34.2 RDW 11.7 Plt Count 203 MPV 10.6 Immature Gran % (Auto) 1.2 H Neut % (Auto) 88.4 H Lymph % (Auto) 3.9 L [place] % (Auto) 6.3 Eos % (Auto) 0.0 Baso % (Auto) 0.2 Lymph # (Auto) 0.9 L [place] # (Auto) 1.4 H Eos # (Auto) 0.0 Baso # (Auto) 0.0 Abs Immat Gran (auto) 0.27 H Absolute Neuts (auto) 19.5 H Absolute Nucleated RBC 0.000 Nucleated RBC % (auto) 0.0 Anion Gap 13 Estim Creat Clear Calc 115.5 Estimated GFR > 60 Random Glucose 125 H Lactic Acid Calcium 9.6 Total Bilirubin 1.2 H AST 24 ALT 42 H Alkaline Phosphatase 87 Total Protein 7.6 Albumin 4.3 Lipase 11 Urine Color Urine Appearance Urine pH Ur Specific [place] Urine Protein Urine Glucose (UA) Urine Ketones Urine Blood Urine Nitrite Ur Leukocyte Esterase Urine RBC Urine WBC Ur Squamous Epith Cells Urine Bacteria Hyaline Casts C. difficile Tox B Gene COVID-19 (LAZARO) COVID-19 Clin Com Influenza Type A (CRISTINA) Negative Influenza Type B (CRISTINA) Negative Influenza A & B Note See Note Blood Type Antibody Screen 04/10/23 04/10/23 04/10/23 13:25 13:25 17:55 MCV MCH MCHC RDW Plt Count MPV Immature Gran % (Auto) Neut % (Auto) Lymph % (Auto) [place] % (Auto) Eos % (Auto) Baso % (Auto) Lymph # (Auto) [place] # (Auto) Eos # (Auto) Baso # (Auto) Abs Immat Gran (auto) Absolute Neuts (auto) Absolute Nucleated RBC Nucleated RBC % (auto) Anion Gap Estim Creat Clear Calc Estimated GFR Random Glucose Lactic Acid 1.0 Calcium Total Bilirubin AST ALT Alkaline Phosphatase Total Protein Albumin Lipase Urine Color Dark Yellow Urine Appearance Clear Urine pH 6.0 Ur Specific [place] 1.020 Urine Protein 100 (2+) H Urine Glucose (UA) Negative Urine Ketones 15 Urine Blood Negative Urine Nitrite Negative Ur Leukocyte Esterase Trace H Urine RBC 0-2 Urine WBC 0-5 Ur Squamous Epith Cells 0-2 Urine Bacteria None Seen Hyaline Casts 3-5 C. difficile Tox B Gene COVID-19 (LAZARO) Negative COVID-19 Clin Com See Note Influenza Type A (CRISTINA) Influenza Type B (CRISTINA) Influenza A & B Note Blood Type Antibody Screen 04/10/23 04/10/23 17:55 18:02 MCV MCH MCHC RDW Plt Count MPV Immature Gran % (Auto) Neut % (Auto) Lymph % (Auto) [place] % (Auto) Eos % (Auto) Baso % (Auto) Lymph # (Auto) [place] # (Auto) Eos # (Auto) Baso # (Auto) Abs Immat Gran (auto) Absolute Neuts (auto) Absolute Nucleated RBC Nucleated RBC % (auto) Anion Gap Estim Creat Clear Calc Estimated GFR Random Glucose Lactic Acid Calcium Total Bilirubin AST ALT Alkaline Phosphatase Total Protein Albumin Lipase Urine Color Urine Appearance Urine pH Ur Specific [place] Urine Protein Urine Glucose (UA) Urine Ketones Urine Blood Urine Nitrite Ur Leukocyte Esterase Urine RBC Urine WBC Ur Squamous Epith Cells Urine Bacteria Hyaline Casts C. difficile Tox B Gene NEGATIVE COVID-19 (LAZARO) COVID-19 [employer] Com Influenza Type A (CRISTINA) Influenza Type B (CRISTINA) Influenza A & B Note Blood Type O Positive Antibody Screen NEGATIVE Procedures Date of Service Date of Service: 04/11/23 Progress Note: A&P Assessment and plan (1) Acute appendicitis with rupture: Status: Acute Assessment and Plan: s/p appendectomyu via laparotomy looks well KWESI drain serosanguinous IV abx labs pending looks well IV abx OOB incentive spirometry clear liquids Time Spent With Patient Time: Total time managing care of this patient today ____ minutes. Quality Stroke Does the patient have a stroke diagnosis?: No VTE Prior VTE?: No VTE Risk Level:: Medical - low VTE Device Contraindication: N/A - Device Ordered VTE Drug Contraindication: Treatment Not Indicated
[2023-04-11 08:52] LABS: Hemoglobin 12.4 g/dl (14.0-18.0); Mean Corpuscular HGB Conc 33.5 g/dl (31.0-36.0); Mean Corpuscular Hemoglobin 30.4 pg (27.0-33.0); Mean Corpuscular Volume 90.7 fL (80.0-98.0); Mean Platelet Volume 11.4 fL (9.4-12.4); Platelet Count 203 X10*3/uL (160-400); Red Blood Count 4.08 X10*6/uL (4.60-5.80); White Blood Count 17.1 X10*3/uL (4.8-10.8)
[2023-04-11] MEDS: 0.9 % Sodium Chloride Flush 3 ML SYRINGE IVFLUSH ×2 (09:11→21:35)
[2023-04-11 09:22] LABS: Anion Gap 11 (12-20); Blood Urea Nitrogen 9 mg/dL (9-16); Calcium 9.3 mg/dL (8.4-10.2); Carbon Dioxide 24 mmol/L (22-29); Chloride 107 mmol/L (96-108); Creatinine Clr Calc Pharmacy 136.3; Estimated Glomerular Filt Rate > 60; Glucose Random 150 mg/dL (60-115); Potassium 3.9 mmol/L (3.3-5.1); Sodium 138 mmol/L (135-145)
[2023-04-11] MEDS: oxyCODONE HCl Immed Release 5 MG TABLET 10 MG PO ×2 (12:20→20:38)
--- NOTE | 2023-04-11 15:12 | MHC.CM.PN ---
pt is indepedent will not need servcies
[2023-04-11 15:28] VITALS: BP 117/69; PULSE 86; RESP 17; TEMP 36.4; O2SAT 96
--- NOTE | 2023-04-11 16:53 | HO.POSTANES ---
Post Anesthesia Evaluation Post Anesthesia Evaluation Date of Service: 04/11/23 Vital Signs: Vital Signs Temp Pulse Resp BP Pulse Ox O2 Del Method O2 Flow Rate 04/11/23 15:28 97.6 F 86 17 117/69 96 Room Air 04/11/23 07:43 96.9 F 71 16 107/62 96 Nasal Cannula 2 Anesthesia: General Endotracheal-GETA Mental Status: Awake Pain Control: Satisfactory Nausea/Vomiting: None Hydration: Adequate Anesthesia-Related Issues: No Anes. Related Issues
[2023-04-11 17:22] LABS: Adenovirus F 40/41 Not Detected (Not Detect.); Astrovirus Not Detected (Not Detect.); Campylobacter Not Detected (Not Detect.); Cryptosporidium Not Detected (Not Detect.); Cyclospora cayetanensis Not Detected (Not Detect.); E. coli EAEC Not Detected (Not Detect.); E. coli EPEC Not Detected (Not Detect.); E. coli ETEC Not Detected (Not Detect.); E. coli STEC Not Detected (Not Detect.); Entamoeba histolytica Not Detected (Not Detect.); Giardia lamblia Not Detected (Not Detect.); Plesiomonas shigelloides Not Detected (Not Detect.); Rotavirus A Not Detected (Not Detect.); Salmonella Not Detected (Not Detect.); Sapovirus Not Detected (Not Detect.); Shigella sp./EIEC Not Detected (Not Detect.); Vibrio Not Detected (Not Detect.); Vibrio Cholerae Not Detected (Not Detect.); Yersinia enterocolitica Not Detected (Not Detect.)
[2023-04-11 17:24] LABS: Norovirus GI/GII Detected (Not Detect.)
[2023-04-11 19:28] VITALS: BP 119/77; PULSE 82; RESP 16; TEMP 37.2; O2SAT 96
[2023-04-11] MEDS: Lactated Ringers 1,000 ML 80 ML IVCONT (21:35)
[2023-04-11] MEDS: ondansetron HCL 4 MG/2 ML VIAL IVPUSH (22:23)
[2023-04-12] MEDS: Morphine Sulfate 4 MG/ML CARTRIDGE IVPUSH ×4 (00:13→20:05)
[2023-04-12] MEDS: Piperacillin Sodium/Tazobactam 3.375 GM in 0.9 % Sodium Chloride 50 ML IV ×4 (03:29→20:10)
[2023-04-12 03:31] VITALS: BP 128/87; PULSE 101; RESP 16; TEMP 36; O2SAT 94
--- NOTE | 2023-04-12 04:06 | PC.NURSE ---
Addendum entered by Ashley Alcantara 04/12/23 05:32: pt had large unmeasured amount of urine at 04:27. Afterwards pt was bladder scan for 0ml. Will continue to monitor pt's urine output. Original Note: Pt's warren removed at 00:45. Pt 1st due to void is at 06:45. Will continue to monitor pt's output.
[2023-04-12 07:19] VITALS: BP 144/98; PULSE 94; RESP 18; TEMP 36.3; O2SAT 94
[2023-04-12] MEDS: ondansetron HCL 4 MG/2 ML VIAL IVPUSH ×2 (07:36)
--- NOTE | 2023-04-12 08:19 | PM.PNGS ---
Subjective Subjective Date of Service: 04/12/23 Interval history: Nauseous and vomited last night and this morning Denies flatus No fever Physical Exam Vital Signs: Vital Signs: Last Vital Signs Temp 97.4 F 04/12/23 07:19 Pulse 94 04/12/23 07:19 Resp 18 04/12/23 07:19 BP 144/98 H 04/12/23 07:19 Pulse Ox 94 04/12/23 07:19 O2 Del Method Room Air 04/12/23 07:19 O2 Flow Rate 2 04/11/23 07:43 BMI result Body Mass Index 34.9 Const: General: no acute distress; No comfortable Resp: Effort & Inspection: normal respiratory effort Cardio: Rate: regular rate GI: Other: Soft, some staining on the dressing, KWESI drain serosanguineous, some distension tenderness Objective Data Active Medications Fentanyl (Fentanyl Citrate/Pf 100 Mcg/2 Ml Vial) 25 mcg IVPUSH Q5M PRN; Protocol PRN Reason: Pain, Moderate(Pain Scale 4-6) Last Admin: 04/10/23 20:33 Dose: 25 mcg Documented By: ROBBIE Lactated Ringer's (Lr) 1,000 mls @ 80 mls/hr IVCONT .[id number] [facility] Last Admin: 04/12/23 04:05 Dose: Not Given Documented By: ALYCE Non-Admin Reason: IV Running Piperacillin Sod/Tazobactam (Sod 3.375 gm/ Sodium Chloride) 50 mls @ 100 mls/hr IV Q6H [facility] Last Infusion: 04/12/23 04:05 Dose: 0 mls/hr Documented By: ALYCE Morphine Sulfate (Morphine Sulfate 4 Mg/Ml Cartridge) 4 mg IVPUSH Q4H PRN; Protocol PRN Reason: pain, severe Last Admin: 04/12/23 07:36 Dose: 4 mg Documented By: IRENE Ondansetron HCl (Ondansetron Hcl 4 Mg/2 Ml Vial) 4 mg IVPUSH Q8H PRN PRN Reason: nausea Last Admin: 04/11/23 22:23 Dose: 4 mg Documented By: ALYCE Oxycodone HCl (Oxycodone Hcl Immed Release 5 Mg Tablet) 10 mg PO Q4H PRN PRN Reason: pain, moderate Last Admin: 04/11/23 20:38 Dose: 10 mg Documented By: ALYCE Pharmacy Consult (Consult Rx Perform Med Rec) 1 each MISCELLANE ONCE PRN PRN Reason: Consult order Sodium Chloride (0.9 % Sodium Chloride Flush 3 Ml Syringe) 3 ml IVFLUSH QSHIFT [facility] Last Admin: 04/12/23 07:41 Dose: Not Given Documented By: IRENE Non-Admin Reason: IV Running Labs 04/11/23 07:38 04/11/23 07:38 Labs: Laboratory Results - last 24 hr 04/10/23 04/11/23 04/11/23 18:02 07:38 07:38 MCV 90.7 MCH 30.4 MCHC 33.5 RDW 12.0 Plt Count 203 MPV 11.4 Absolute Nucleated RBC 0.000 Nucleated RBC % (auto) 0.0 Anion Gap 11 L Estim Creat Clear Calc 136.3 Estimated GFR > 60 Random Glucose 150 H Calcium 9.3 Stl C. cayetanensis PCR Not Detected Stool Rotavirus A PCR Not Detected Stl Adenov F 40/41 PCR Not Detected Stool Astrovirus (PCR) Not Detected Stool Campylobacter PCR Not Detected Stool Cryptosporidium PCR Not Detected Stl Sh Tox Pr E STEC PCR Not Detected Stool E coli O157 PCR Not applicable Stl Enterotoxigenic E PCR Not Detected Stool EPEC (PCR) Not Detected Stool EAEC (PCR) Not Detected Stl E. histolytica PCR Not Detected Stool Giardia Lamblia PCR Not Detected Stl P. shigelloides PCR Not Detected Stool Salmonella PCR Not Detected Stool Sapovirus (PCR) Not Detected Stl Shigella/EIEC PCR Not Detected St Y.enterocolitica PCR Not Detected Stool Vibrio (PCR) Not Detected Stl Vibrio cholerae PCR Not Detected Stl Norovirus GI/GII PCR Detected A Microbiology Microbiology Results: Microbiology 04/10/23 Unknown Gram Stain - Final Peritoneal Fluid Routine Culture - Preliminary Escherichia coli Anaerobic Culture - Preliminary Culture in progress. 04/10/23 15:25 Blood Culture - Preliminary Blood - Arterial No growth after 24 hours. 04/10/23 15:25 Blood Culture - Preliminary Blood - Arterial No growth after 24 hours. Procedures Date of Service Date of Service: 04/12/23 Progress Note: A&P Assessment and plan (1) Acute appendicitis with rupture: Status: Acute Assessment and Plan: Status post appendectomy KWESI drain clear Vomiting and nauseous with pain Likely ileus Insert NG tube Check KUB Encouraged to get out of bed Continue IV antibiotics Time Spent With Patient Time: Total time managing care of this patient today ____ minutes. Quality Stroke Does the patient have a stroke diagnosis?: No VTE Prior VTE?: No VTE Risk Level:: Medical - low VTE Device Contraindication: N/A - Device Ordered VTE Drug Contraindication: Treatment Not Indicated
--- NOTE | 2023-04-12 08:21 | MHC.IC ---
PT IS POSITIVE FOR NOROVIRUS, WHICH IS VERY CONTAGIOUS. WASH HANDS WITH SOAP AND WATER AFTER ALL CONTACT. CLEAN SURFACES WITH BLEACH.
--- NOTE | 2023-04-12 12:24 | PM.EVENT ---
Event Note Date of Service: 04/12/23 Event Note: States he felt better after NG tube insertion Still complains of abdominal pain and tenderness KUB c/w ileus Plan to repeat CT scan with IV contrast in view of severe inflammatory changes seen intraop Explained this to patient Otherwise stable hemodynamically Time Spent With Patient Time: Total time managing care of this patient today ____ minutes.
[2023-04-12] MEDS: Lactated Ringers 1,000 ML 80 ML IVCONT (13:16)
[2023-04-12] MEDS: iohexoL 350 MG/ML 100 ML INFUS..BTL IV (15:01)
[2023-04-12 15:21] VITALS: BP 151/94; PULSE 95; RESP 16; TEMP 36.6; O2SAT 93
--- NOTE | 2023-04-12 16:39 | PM.EVENT ---
Event Note Date of Service: 04/12/23 Event Note: seen on afternoon rounds says he feels better abd soft, although quill machine tender looks more comfortable KWESI - serosanguinous CT reviewed - postop changes, no new collection, no significant free fluid; colon and SB ileus keep NGT in place for ileus OOB pain mgt labs ordered IV abx await return of GI function GI panel positive for Norovirus; on contact precautions above explained to pt via administrative office specialist Time Spent With Patient Time: Total time managing care of this patient today ____ minutes.
[2023-04-12 19:14] VITALS: BP 147/72; PULSE 98; RESP 17; TEMP 37; O2SAT 94
[2023-04-12 20:05] VITALS: RESP 18
[2023-04-13] MEDS: Morphine Sulfate 4 MG/ML CARTRIDGE IVPUSH ×5 (00:35→23:50)
[2023-04-13] MEDS: Lactated Ringers 1,000 ML 80 ML IVCONT ×3 (02:32→21:10)
[2023-04-13] MEDS: Piperacillin Sodium/Tazobactam 3.375 GM in 0.9 % Sodium Chloride 50 ML IV ×4 (03:07→20:22)
[2023-04-13 03:52] VITALS: BP 130/84; PULSE 99; RESP 16; TEMP 36.4; O2SAT 93
[2023-04-13 07:38] VITALS: BP 154/96; PULSE 97; RESP 16; TEMP 36.1; O2SAT 93
[2023-04-13 07:53] LABS: Anion Gap 13 (12-20); Blood Urea Nitrogen 13 mg/dL (9-16); Calcium 8.6 mg/dL (8.4-10.2); Carbon Dioxide 25 mmol/L (22-29); Chloride 104 mmol/L (96-108); Creatinine Clr Calc Pharmacy 140.3; Estimated Glomerular Filt Rate > 60; Glucose Random 129 mg/dL (60-115); Potassium 3.8 mmol/L (3.3-5.1); Sodium 138 mmol/L (135-145)
[2023-04-13 07:55] LABS: Hematocrit 41.5 % (42.0-52.0); Mean Corpuscular HGB Conc 33.7 g/dl (31.0-36.0); Mean Corpuscular Hemoglobin 30.4 pg (27.0-33.0); Mean Platelet Volume 10.6 fL (9.4-12.4); Platelet Count 324 X10*3/uL (160-400); Red Blood Count 4.61 X10*6/uL (4.60-5.80)
--- NOTE | 2023-04-13 10:26 | P.PNGS_ITS ---
Subjective Subjective Date of Service: 04/13/23 <Zulema Loco PA-C - Last Filed: 04/13/23 10:36> 04/13/23 <Maykel Scales MD - Last Filed: 04/13/23 11:15> Interval history: Feels much better today. Had a small BM but not really passing flatus. OOB to bathroom only. Denies abd pain. <Zulema Loco PA-C - Last Filed: 04/13/23 10:36> Physical Exam Vital Signs: Vital Signs: Last Vital Signs Temp 96.9 F 04/13/23 07:38 Pulse 97 04/13/23 07:38 Resp 16 04/13/23 07:38 BP 154/96 H 04/13/23 07:38 Pulse Ox 93 04/13/23 07:38 O2 Del Method Room Air 04/13/23 07:38 O2 Flow Rate 2 04/11/23 07:43 BMI result Body Mass Index 34.9 <Zulema Loco PA-C - Last Filed: 04/13/23 10:36> Const: General: comfortable, no acute distress and alert <Zulema Loco PA-C - Last Filed: 04/13/23 10:36> Orientation/consciousness: patient oriented x3 <THUAN Mae Last Filed: 04/13/23 10:36> Resp: Effort & Inspection: normal respiratory effort <Zulema Loco PA-C - Last Filed: 04/13/23 10:36> GI: Other: KWESI drain with serous output <Zulema Loco PA-C - Last Filed: 04/13/23 10:36> Inspection: Yes distended and Yes incision (clean, wound grzegorz advanced) <THUAN Mae Last Filed: 04/13/23 10:36> Palpation (GI): Soft to palpation, Tenderness to palpation present (GI) (mild incisional), no guarding and not rigid <THUAN Mae Last Filed: 04/13/23 10:36> Percussion: Yes tympanic to percussion <Zulema Loco PA-C - Last Filed: 04/13/23 10:36> Skin: General skin exam: no rashes or lesions noted <Zulema Loco PA-C - Last Filed: 04/13/23 10:36> Neuro: General: patient oriented x3 and moves all extremities <Zulema Loco PA-C - Last Filed: 04/13/23 10:36> Objective Data Active Medications Fentanyl (Fentanyl Citrate/Pf 100 Mcg/2 Ml Vial) 25 mcg IVPUSH Q5M PRN; Protocol PRN Reason: Pain, Moderate(Pain Scale 4-6) Last Admin: 04/10/23 20:33 Dose: 25 mcg Documented By: ROBBIE Lactated Ringer's (Lr) 1,000 mls @ 80 mls/hr IVCONT .[id number] [facility] Last Infusion: 04/13/23 03:40 Dose: 80 mls/hr Documented By: CHANEL Piperacillin Sod/Tazobactam (Sod 3.375 gm/ Sodium Chloride) 50 mls @ 100 mls/hr IV Q6H [facility] Last Infusion: 04/13/23 10:08 Dose: 0 mls/hr Documented By: IRENE Morphine Sulfate (Morphine Sulfate 4 Mg/Ml Cartridge) 4 mg IVPUSH Q4H PRN; Protocol PRN Reason: pain, severe Last Admin: 04/13/23 10:20 Dose: 4 mg Documented By: IRENE Ondansetron HCl (Ondansetron Hcl 4 Mg/2 Ml Vial) 4 mg IVPUSH Q8H PRN PRN Reason: nausea Last Admin: 04/12/23 07:36 Dose: 4 mg Documented By: IRENE Oxycodone HCl (Oxycodone Hcl Immed Release 5 Mg Tablet) 10 mg PO Q4H PRN PRN Reason: pain, moderate Last Admin: 04/11/23 20:38 Dose: 10 mg Documented By: ALYCE Pharmacy Consult (Consult Rx Perform Med Rec) 1 each MISCELLANE ONCE PRN PRN Reason: Consult order Sodium Chloride (0.9 % Sodium Chloride Flush 3 Ml Syringe) 3 ml IVFLUSH QSHIFT [facility] Last Admin: 04/13/23 08:08 Dose: Not Given Documented By: IRENE Non-Admin Reason: IV Running <Zulema Loco PA-C - Last Filed: 04/13/23 10:36> Labs CBC & Chem 7: 04/13/23 07:26 04/13/23 07:26 <Zulema Loco PA-C - Last Filed: 04/13/23 10:36> Labs: Laboratory Results - last 24 hr 04/13/23 04/13/23 07:26 07:26 MCV 90.0 MCH 30.4 MCHC 33.7 RDW 12.0 Plt Count 324 D MPV 10.6 Absolute Nucleated RBC 0.000 Nucleated RBC % (auto) 0.0 Anion Gap 13 Estim Creat Clear Calc 140.3 Estimated GFR > 60 Random Glucose 129 H Calcium 8.6 D <Zulema Loco PA-C - Last Filed: 04/13/23 10:36> Microbiology Microbiology Results: Microbiology 04/10/23 15:25 Blood Culture - Preliminary Blood - Arterial No growth after 48 hours. 04/10/23 15:25 Blood Culture - Preliminary Blood - Arterial No growth after 48 hours. 04/10/23 Unknown Gram Stain - Final Peritoneal Fluid Routine Culture - Preliminary Escherichia coli Gram negative sam Anaerobic Culture - Preliminary Culture in progress. <Zulema Loco PA-C - Last Filed: 04/13/23 10:36> Procedures Date of Service Date of Service: 04/13/23 <Zulema Loco PA-C - Last Filed: 04/13/23 10:36> 04/13/23 <Maykel Scales MD - Last Filed: 04/13/23 11:15> Progress Note: A&P Assessment and plan (1) Acute appendicitis with rupture: Status: Acute <Zulema Loco PA-C - Last Filed: 04/13/23 10:36> Assessment and Plan: 37 year old male admitted with perforated appendicitis now POD #3 open appendectomy. Had feculent and purulent collection, gangrenous appendix surrounded by matted loops of small bowel and mesentery and surrounding?peritonitis. Developed nausea/vomiting yesterday. NGT inserted with high output. CT scan performed yesterday showed post op ileus. He is overall improved this morning but remains distended on exam. Abd overall benign, incision clean, wound grzegorz advanced. KWESI with serous drainage. Will therefore keep NGT in place for now. Encouraged OOB/ambulation to promote GI function. Keep KWESI drain in place. Cont IVV, IV abx. Repeat labs in am. <Zulema Loco PA-C - Last Filed: 04/13/23 10:36> 37 year old male admitted with perforated appendicitis now POD #3 open appendectomy. Had feculent and purulent collection, gangrenous appendix surrounded by matted loops of small bowel and mesentery and surrounding?peritonitis. Developed nausea/vomiting yesterday. NGT inserted with high output. CT scan performed yesterday showed post op ileus. He is overall improved this morning but remains distended on exam. Abd overall benign, incision clean, wound grzegorz advanced. KWESI with serous drainage. Will t herefore keep NGT in place for now. Encouraged OOB/ambulation to promote GI function. Keep KWESI drain in place. Cont IVV, IV abx. Repeat labs in am. Pod 3 following open appendectomy for perforated appendix with peritonitis. Patient developed ileus requiring NG tube. He has improvement but still appears distended wounds are clean and dry. Agree with the above assessment and plan. Will monitor NG tube output. <Maykel Scales MD - Last Filed: 04/13/23 11:15> Time Spent With Patient Time: Total time managing care of this patient today ____ minutes. <Zulema Loco PA-C - Last Filed: 04/13/23 10:36> Quality Stroke Does the patient have a stroke diagnosis?: No <Zulema Loco PA-C - Last Filed: 04/13/23 10:36> VTE Prior VTE?: No <Zulema Loco PA-C - Last Filed: 04/13/23 10:36> VTE Risk Level:: Medical - low <Zulema Loco PA-C - Last Filed: 04/13/23 10:36> VTE Device Contraindication: N/A - Device Ordered <Zulema Loco PA-C - Last Filed: 04/13/23 10:36> VTE Drug Contraindication: Treatment Not Indicated <Zulema Loco PA-C - Last Filed: 04/13/23 10:36>
[2023-04-13] MEDS: oxyCODONE HCl Immed Release 5 MG TABLET 10 MG PO ×2 (13:27→20:21)
[2023-04-13 15:08] VITALS: BP 141/86; PULSE 93; RESP 18; TEMP 36.3; O2SAT 92
[2023-04-13] MEDS: 0.9 % Sodium Chloride Flush 3 ML SYRINGE IVFLUSH ×2 (15:24→23:56)
[2023-04-13 19:28] VITALS: BP 138/88; PULSE 103; RESP 18; TEMP 36.4; O2SAT 90
[2023-04-14] MEDS: Piperacillin Sodium/Tazobactam 3.375 GM in 0.9 % Sodium Chloride 50 ML IV (03:05)
[2023-04-14 03:22] VITALS: BP 132/83; PULSE 99; RESP 18; TEMP 36.7; O2SAT 92
[2023-04-14 05:54] LABS: Basophils Absolute Auto 0.1 X10*3/uL (0.0-0.2); Basophils Percent Auto 0.3 % (0-2); Eosinophils Absolute Auto 0.1 X10*3/uL (0.0-0.4); Eosinophils Percent Auto 0.4 % (0-4); Hemoglobin 13.4 g/dl (14.0-18.0); Imm Gran Abs Auto 0.26 X10*3/uL (0.00-0.03); Imm Gran Pct Auto 1.5 % (0.0-0.4); Lymphocytes Absolute Auto 2.2 X10*3/uL (1.2-4.9); Lymphocytes Percent Auto 12.9 % (20-40); MANUAL DIFF FLAG SCAN; Mean Corpuscular HGB Conc 33.5 g/dl (31.0-36.0); Mean Corpuscular Hemoglobin 30.2 pg (27.0-33.0); Mean Corpuscular Volume 90.1 fL (80.0-98.0); Mean Platelet Volume 10.3 fL (9.4-12.4); Monocytes Absolute Auto 1.8 X10*3/uL (0.1-1.2); Monocytes Percent Auto 10.6 % (2-11); Neutrophils Absolute Auto 12.9 x10*3/uL (2.0-8.3); Neutrophils Percent Auto 74.3 % (45-73); Platelet Count 352 X10*3/uL (160-400); Red Blood Count 4.44 X10*6/uL (4.60-5.80); Red Cell Distribution Width 11.8 % (11.0-16.0); SCAN SMEAR FLAG 1; White Blood Count 17.4 X10*3/uL (4.8-10.8)
[2023-04-14 06:13] LABS: Anion Gap 14 (12-20); Blood Urea Nitrogen 13 mg/dL (9-16); Calcium 8.9 mg/dL (8.4-10.2); Carbon Dioxide 25 mmol/L (22-29); Chloride 104 mmol/L (96-108); Creatinine Clr Calc Pharmacy 146.8; Estimated Glomerular Filt Rate > 60; Glucose Fasting 112 mg/dL (60-99); Potassium 3.7 mmol/L (3.3-5.1); Sodium 139 mmol/L (135-145)
[2023-04-14 06:16] LABS: SLIDE REVIEW VERIFIED
[2023-04-14] MEDS: Morphine Sulfate 4 MG/ML CARTRIDGE IVPUSH ×4 (06:27→21:13)
[2023-04-14 08:00] VITALS: BP 138/93; PULSE 98; RESP 18; TEMP 36.4; O2SAT 93
[2023-04-14] MEDS: cefTRIAXone sodium 2 GM in 0.9 % Sodium Chloride 50 ML IV ×2 (08:23→20:30)
[2023-04-14] MEDS: metroNIDAZOLE/NS 500 MG/100 ML PIGGYBACK 100 MG IV ×2 (08:23→18:14)
[2023-04-14] MEDS: Lactated Ringers 1,000 ML 80 ML IVCONT ×2 (08:23→21:15)
--- NOTE | 2023-04-14 09:00 | PM.PNGS ---
Subjective Subjective Date of Service: 04/14/23 Interval history: Feels much better this morning. Abdominal pain is controlled. Had large BM last night and has been passing continuous flatus. Feels less distended. Has been OOB and ambulating. He did have high NGT output overnight but has had a large cup of ice chips. Physical Exam Vital Signs: Vital Signs: Last Vital Signs Temp 97.5 F 04/14/23 08:00 Pulse 98 04/14/23 08:00 Resp 18 04/14/23 08:00 BP 138/93 H 04/14/23 08:00 Pulse Ox 93 04/14/23 08:00 O2 Del Method Room Air 04/14/23 08:00 O2 Flow Rate 2 04/11/23 07:43 BMI result Body Mass Index 34.9 Const: General: comfortable, no acute distress and alert Orientation/consciousness: patient oriented x3 Resp: Effort & Inspection: normal respiratory effort GI: Other: KWESI drain serous output Inspection: Yes distended and Yes incision (clean, wound grzegorz removed) Palpation (GI): Soft to palpation, Tenderness to palpation present (GI) (incisional) with no rebound tenderness, no guarding and not rigid Percussion: Yes normal to percussion Skin: General skin exam: no rashes or lesions noted Neuro: General: patient oriented x3 and moves all extremities Objective Data Active Medications Fentanyl (Fentanyl Citrate/Pf 100 Mcg/2 Ml Vial) 25 mcg IVPUSH Q5M PRN; Protocol PRN Reason: Pain, Moderate(Pain Scale 4-6) Last Admin: 04/10/23 20:33 Dose: 25 mcg Documented By: ROBBIE Lactated Ringer's (Lr) 1,000 mls @ 80 mls/hr IVCONT .[id number] [facility] Last Admin: 04/14/23 08:23 Dose: 80 mls/hr Documented By: ALEJANDRO Metronidazole (Flagyl) 500 mg in 100 mls @ 100 mls/hr IV Q8H [facility] Last Admin: 04/14/23 08:23 Dose: 100 mls/hr Documented By: ALEJANDRO Ceftriaxone Sodium 2 gm/ (Sodium Chloride) 50 mls @ 100 mls/hr IV Q12H [facility] Last Infusion: 04/14/23 08:56 Dose: 0 mls/hr Documented By: ALEJANDRO Morphine Sulfate (Morphine Sulfate 4 Mg/Ml Cartridge) 4 mg IVPUSH Q4H PRN; Protocol PRN Reason: pain, severe Last Admin: 04/14/23 06:27 Dose: 4 mg Documented By: ADAM Ondansetron HCl (Ondansetron Hcl 4 Mg/2 Ml Vial) 4 mg IVPUSH Q8H PRN PRN Reason: nausea Last Admin: 04/12/23 07:36 Dose: 4 mg Documented By: IRENE Oxycodone HCl (Oxycodone Hcl Immed Release 5 Mg Tablet) 10 mg PO Q4H PRN PRN Reason: pain, moderate Last Admin: 04/13/23 20:21 Dose: 10 mg Documented By: ADAM Pharmacy Consult (Consult Rx Perform Med Rec) 1 each MISCELLANE ONCE PRN PRN Reason: Consult order Sodium Chloride (0.9 % Sodium Chloride Flush 3 Ml Syringe) 3 ml IVFLUSH QSHIFT [facility] Last Admin: 04/14/23 07:52 Dose: Not Given Documented By: ALEJANDRO Non-Admin Reason: IV Running Labs 04/14/23 05:16 04/14/23 05:16 Labs: Laboratory Results - last 24 hr 04/14/23 04/14/23 05:16 05:16 MCV 90.1 MCH 30.2 MCHC 33.5 RDW 11.8 Plt Count 352 MPV 10.3 Immature Gran % (Auto) 1.5 H Neut % (Auto) 74.3 H Lymph % (Auto) 12.9 L [place] % (Auto) 10.6 Eos % (Auto) 0.4 Baso % (Auto) 0.3 Lymph # (Auto) 2.2 [place] # (Auto) 1.8 H Eos # (Auto) 0.1 Baso # (Auto) 0.1 Abs Immat Gran (auto) 0.26 H Absolute Neuts (auto) 12.9 H Absolute Nucleated RBC 0.000 Nucleated RBC % (auto) 0.0 Smear Tech's Comments VERIFIED Anion Gap 14 Estim Creat Clear Calc 146.8 Estimated GFR > 60 Fasting Glucose 112 H Calcium 8.9 Microbiology Microbiology Results: Microbiology 04/10/23 Unknown Gram Stain - Final Peritoneal Fluid Routine Culture - Final Escherichia coli Anaerobic Culture - Final Bacteroides fragilis group Procedures Date of Service Date of Service: 04/14/23 Progress Note: A&P Assessment and plan (1) Acute appendicitis with rupture: Status: Acute Plan 37 year old male admitted with perforated appendicitis now POD #3 open appendectomy. Had feculent and purulent collection, gangrenous appendix surrounded by matted loops of small bowel and mesentery and surrounding peritonitis. Developed nausea/vomiting yesterday, CT consistent with post op ileus requiring NGT decompression. Continues to feel improved with evidence of GI function. Abd slightly distended but less, incision clean. Will clamp NGT for now. Check residual in 4 hrs and will remove if output <100cc and remains asymptomatic. Continue OOB/ambulation of halls and IS use. WBC up this am. Peritoneal cultures grew e Coli and bacteroides. Abx changed to rocephin and flagyl based on sensitivities. Repeat CBC in am. Time Spent With Patient Time: Total time managing care of this patient today ____ minutes. Quality Stroke Does the patient have a stroke diagnosis?: No VTE Prior VTE?: No VTE Risk Level:: Medical - low VTE Device Contraindication: N/A - Device Ordered VTE Drug Contraindication: Treatment Not Indicated
--- NOTE | 2023-04-14 13:09 | PC.NURSE ---
NG tube removed per AASHISH Loco pt tolerated well . okay to start clear liquids .
[2023-04-14 15:05] VITALS: BP 153/88; PULSE 98; RESP 18; TEMP 36.5; O2SAT 94
[2023-04-14 19:14] VITALS: BP 138/86; PULSE 98; RESP 15; TEMP 36.4; O2SAT 95
[2023-04-14 21:13] VITALS: RESP 18
[2023-04-15] MEDS: oxyCODONE HCl Immed Release 5 MG TABLET 10 MG PO ×3 (00:23→20:42)
[2023-04-15] MEDS: metroNIDAZOLE/NS 500 MG/100 ML PIGGYBACK 100 MG IV ×3 (00:52→16:06)
[2023-04-15 04:53] VITALS: BP 126/79; PULSE 80; RESP 16; TEMP 36.1; O2SAT 96
[2023-04-15] MEDS: cefTRIAXone sodium 2 GM in 0.9 % Sodium Chloride 50 ML IV ×2 (07:43→20:44)
[2023-04-15 07:51] VITALS: BP 128/68; PULSE 72; RESP 16; TEMP 36.4; O2SAT 96
--- NOTE | 2023-04-15 07:57 | PM.PNGS ---
Subjective Subjective Date of Service: 04/15/23 Interval history: Patient had uneventful evening. Tolerated clear liquids. Passing flatus. Some incisional discomfort. Physical Exam Vital Signs: Vital Signs: Last Vital Signs Temp 97.6 F 04/15/23 07:51 Pulse 72 04/15/23 07:51 Resp 16 04/15/23 07:51 BP 128/68 04/15/23 07:51 Pulse Ox 96 04/15/23 07:51 O2 Del Method Room Air 04/15/23 07:51 O2 Flow Rate 2 04/11/23 07:43 BMI result Body Mass Index 34.9 GI: Other: Abdomen mildly distended. Incision clean dry and intact. KWESI drain serous output. Objective Data Active Medications Fentanyl (Fentanyl Citrate/Pf 100 Mcg/2 Ml Vial) 25 mcg IVPUSH Q5M PRN; Protocol PRN Reason: Pain, Moderate(Pain Scale 4-6) Last Admin: 04/10/23 20:33 Dose: 25 mcg Documented By: NGUYENC Lactated Ringer's (Lr) 1,000 mls @ 80 mls/hr IVCONT .[id number] [facility] Last Admin: 04/15/23 03:04 Dose: Not Given Documented By: FADY Non-Admin Reason: IV Running Metronidazole (Flagyl) 500 mg in 100 mls @ 100 mls/hr IV Q8H [facility] Last Infusion: 04/15/23 01:52 Dose: 0 mls/hr Documented By: TUMASY Ceftriaxone Sodium 2 gm/ (Sodium Chloride) 50 mls @ 100 mls/hr IV Q12H [facility] Last Admin: 04/15/23 07:43 Dose: 100 mls/hr Documented By: MCGINNM Morphine Sulfate (Morphine Sulfate 4 Mg/Ml Cartridge) 4 mg IVPUSH Q4H PRN; Protocol PRN Reason: pain, severe Last Admin: 04/14/23 21:13 Dose: 4 mg Documented By: TUMASY Ondansetron HCl (Ondansetron Hcl 4 Mg/2 Ml Vial) 4 mg IVPUSH Q8H PRN PRN Reason: nausea Last Admin: 04/12/23 07:36 Dose: 4 mg Documented By: GRAZIC Oxycodone HCl (Oxycodone Hcl Immed Release 5 Mg Tablet) 10 mg PO Q4H PRN PRN Reason: pain, moderate Last Admin: 04/15/23 00:23 Dose: 10 mg Documented By: FADY Pharmacy Consult (Consult Rx Perform Med Rec) 1 each MISCELLANE ONCE PRN PRN Reason: Consult order Sodium Chloride (0.9 % Sodium Chloride Flush 3 Ml Syringe) 3 ml IVFLUSH QSHIFT [facility] Last Admin: 04/15/23 07:37 Dose: Not Given Documented By: ALEJANDRO Non-Admin Reason: IV Running Labs 04/14/23 05:16 04/14/23 05:16 Procedures Date of Service Date of Service: 04/15/23 Progress Note: A&P Assessment and plan (1) Acute appendicitis with rupture: Status: Acute Plan Advanced diet, out of bed/ambulate, incentive spirometry, DC KWESI drain Time Spent With Patient Time: Total time managing care of this patient today ____ minutes. Quality Stroke Does the patient have a stroke diagnosis?: No VTE Prior VTE?: No VTE Risk Level:: Medical - low VTE Device Contraindication: N/A - Device Ordered VTE Drug Contraindication: Treatment Not Indicated
[2023-04-15] MEDS: Lactated Ringers 1,000 ML 80 ML IVCONT ×3 (08:22→23:43)
--- NOTE | 2023-04-15 11:04 | MHC.CM.PN ---
DP Home self care Family will provide transport.
[2023-04-15 15:22] VITALS: BP 137/91; PULSE 84; RESP 18; TEMP 36.1; O2SAT 95
[2023-04-15 20:00] VITALS: BP 139/83; PULSE 77; RESP 16; TEMP 36.2; O2SAT 96
[2023-04-16 01:30] VITALS: BP 136/88; PULSE 73; RESP 16; TEMP 36.3; O2SAT 94
[2023-04-16] MEDS: metroNIDAZOLE/NS 500 MG/100 ML PIGGYBACK 100 MG IV ×3 (01:45→16:57)
[2023-04-16] MEDS: oxyCODONE HCl Immed Release 5 MG TABLET 10 MG PO ×3 (05:06→18:37)
[2023-04-16 06:29] LABS: Basophils Absolute Auto 0.1 X10*3/uL (0.0-0.2); Basophils Percent Auto 0.5 % (0-2); Eosinophils Absolute Auto 0.2 X10*3/uL (0.0-0.4); Eosinophils Percent Auto 1.2 % (0-4); Hematocrit 40.5 % (42.0-52.0); Hemoglobin 13.6 g/dl (14.0-18.0); Imm Gran Abs Auto 0.54 X10*3/uL (0.00-0.03); Imm Gran Pct Auto 3.9 % (0.0-0.4); Lymphocytes Absolute Auto 2.3 X10*3/uL (1.2-4.9); Lymphocytes Percent Auto 16.6 % (20-40); MANUAL DIFF FLAG SCAN; Mean Corpuscular HGB Conc 33.6 g/dl (31.0-36.0); Mean Corpuscular Hemoglobin 30.2 pg (27.0-33.0); Mean Platelet Volume 9.9 fL (9.4-12.4); Monocytes Absolute Auto 1.2 X10*3/uL (0.1-1.2); Monocytes Percent Auto 8.6 % (2-11); Neutrophils Absolute Auto 9.5 x10*3/uL (2.0-8.3); Neutrophils Percent Auto 69.2 % (45-73); Platelet Count 469 X10*3/uL (160-400); Red Cell Distribution Width 11.7 % (11.0-16.0); SCAN SMEAR FLAG 1; White Blood Count 13.8 X10*3/uL (4.8-10.8)
[2023-04-16 06:57] LABS: SLIDE REVIEW VERIFIED
[2023-04-16 07:18] VITALS: BP 135/77; PULSE 76; RESP 18; TEMP 36.1; O2SAT 97
[2023-04-16] MEDS: cefTRIAXone sodium 2 GM in 0.9 % Sodium Chloride 50 ML IV ×2 (07:47→19:42)
--- NOTE | 2023-04-16 10:44 | PM.PNGS ---
Subjective Subjective Date of Service: 04/16/23 Patient reports: feels better, still having pain and tolerating liquids well Interval history: The patient is seen with the help of interpretive services Patient is seen in coverage for Dr. Mendoza Patient reports continued pain and some bloating. He denies any chest pain, difficulty breathing or shortness of breath. He is passing minimal flatus Physical Exam Vital Signs: Vital Signs: Last Vital Signs Temp 97.0 F 04/16/23 07:18 Pulse 76 04/16/23 07:18 Resp 18 04/16/23 07:18 BP 135/77 04/16/23 07:18 Pulse Ox 97 04/16/23 07:18 O2 Del Method Room Air 04/16/23 07:18 O2 Flow Rate 2 04/11/23 07:43 BMI result Body Mass Index 34.9 On exam, he is nontoxic He is in no acute respiratory distress His abdominal dressing is clean and intact. Appropriate incisional tenderness is present without peritoneal sign Objective Data Active Medications Acetaminophen (Acetaminophen 325 Mg Tablet) 650 mg PO Q6H PRN PRN Reason: fever, pain Lactated Ringer's (Lr) 1,000 mls @ 80 mls/hr IVCONT .[id number] [facility] Last Admin: 04/15/23 23:43 Dose: 80 mls/hr Documented By: DELORES Metronidazole (Flagyl) 500 mg in 100 mls @ 100 mls/hr IV Q8H [facility] Last Infusion: 04/16/23 10:14 Dose: 0 mls/hr Documented By: BLADIMIR Ceftriaxone Sodium 2 gm/ (Sodium Chloride) 50 mls @ 100 mls/hr IV Q12H [facility] Last Infusion: 04/16/23 08:39 Dose: 0 mls/hr Documented By: BLADIMIR Morphine Sulfate (Morphine Sulfate 4 Mg/Ml Cartridge) 4 mg IVPUSH Q4H PRN; Protocol PRN Reason: pain, severe Last Admin: 04/14/23 21:13 Dose: 4 mg Documented By: FADY Ondansetron HCl (Ondansetron Hcl 4 Mg/2 Ml Vial) 4 mg IVPUSH Q8H PRN PRN Reason: nausea Last Admin: 04/12/23 07:36 Dose: 4 mg Documented By: GRAZLIZETH Oxycodone HCl (Oxycodone Hcl Immed Release 5 Mg Tablet) 10 mg PO Q4H PRN PRN Reason: pain, moderate Last Admin: 04/16/23 10:32 Dose: 10 mg Documented By: BLADIMIR Oxycodone HCl (Oxycodone Hcl Immed Release 5 Mg Tablet) 5 mg PO Q4H PRN PRN Reason: Pain, Moderate(Pain Scale 4-6) Pharmacy Consult (Consult Rx Perform Med Rec) 1 each MISCELLANE ONCE PRN PRN Reason: Consult order Sodium Chloride (0.9 % Sodium Chloride Flush 3 Ml Syringe) 3 ml IVFLUSH QSHIFT [facility] Last Admin: 04/16/23 07:54 Dose: Not Given Documented By: BLADIMIR Non-Admin Reason: IV Running Labs 04/16/23 05:51 04/14/23 05:16 Labs: Laboratory Results - last 24 hr 04/16/23 05:51 MCV 90.0 MCH 30.2 MCHC 33.6 RDW 11.7 Plt Count 469 H D MPV 9.9 Immature Gran % (Auto) 3.9 H Neut % (Auto) 69.2 Lymph % (Auto) 16.6 L [place] % (Auto) 8.6 Eos % (Auto) 1.2 Baso % (Auto) 0.5 Lymph # (Auto) 2.3 [place] # (Auto) 1.2 Eos # (Auto) 0.2 Baso # (Auto) 0.1 Abs Immat Gran (auto) 0.54 H Absolute Neuts (auto) 9.5 H Absolute Nucleated RBC 0.000 Nucleated RBC % (auto) 0.0 Smear Tech's Comments VERIFIED Microbiology Microbiology Results: Microbiology 04/10/23 15:25 Blood Culture - Final Blood - Arterial No growth after 5 days. 04/10/23 15:25 Blood Culture - Final Blood - Arterial No growth after 5 days. Procedures Date of Service Date of Service: 04/16/23 Progress Note: A&P Assessment and plan (1) Acute appendicitis with rupture: Status: Acute Plan Continue present management. Encourage incentive spirometry and ambulation. Trend labs. Time Spent With Patient Time: Total time managing care of this patient today ____ minutes. Quality Stroke Does the patient have a stroke diagnosis?: No VTE Prior VTE?: No VTE Risk Level:: Medical - low VTE Device Contraindication: N/A - Device Ordered VTE Drug Contraindication: Treatment Not Indicated
[2023-04-16] MEDS: Lactated Ringers 1,000 ML 80 ML IVCONT (14:09)
[2023-04-16 15:53] VITALS: BP 130/84; PULSE 76; RESP 18; TEMP 36.6; O2SAT 96
[2023-04-16 19:55] VITALS: BP 131/83; PULSE 73; RESP 16; TEMP 36.3; O2SAT 95
[2023-04-17] MEDS: metroNIDAZOLE/NS 500 MG/100 ML PIGGYBACK 100 MG IV ×3 (00:59→16:37)
[2023-04-17 04:00] VITALS: BP 132/85; PULSE 78; RESP 16; TEMP 36.1; O2SAT 94
[2023-04-17] MEDS: Lactated Ringers 1,000 ML 80 ML IVCONT (05:41)
[2023-04-17 07:34] VITALS: BP 132/79; PULSE 76; RESP 18; TEMP 36.6; O2SAT 94
[2023-04-17] MEDS: cefTRIAXone sodium 2 GM in 0.9 % Sodium Chloride 50 ML IV ×2 (07:43→19:42)
[2023-04-17] MEDS: 0.9 % Sodium Chloride Flush 3 ML SYRINGE IVFLUSH ×2 (07:43→19:43)
[2023-04-17] MEDS: oxyCODONE HCl Immed Release 5 MG TABLET 10 MG PO ×2 (08:26→19:38)
--- NOTE | 2023-04-17 10:25 | PM.PNGS ---
Subjective Subjective Date of Service: 04/17/23 Patient reports: no new complaints, still having pain and tolerating liquids well Interval history: Patient is seen in coverage for Dr. Mendoza Patient reports continued pain and some bloating. He denies any chest pain, difficulty breathing or shortness of breath. He is passing minimal flatus Nursing has been changing/reinforcing dressings as needed Physical Exam Vital Signs: Vital Signs: Last Vital Signs Temp 97.9 F 04/17/23 07:34 Pulse 76 04/17/23 07:34 Resp 18 04/17/23 07:34 BP 132/79 04/17/23 07:34 Pulse Ox 94 04/17/23 07:34 O2 Del Method Room Air 04/17/23 07:34 O2 Flow Rate 2 04/11/23 07:43 BMI result Body Mass Index 34.9 On exam, he is nontoxic He is in no acute respiratory distress His abdominal dressing is recently changed, clean and intact. Appropriate incisional tenderness is present without peritoneal sign Objective Data Active Medications Acetaminophen (Acetaminophen 325 Mg Tablet) 650 mg PO Q6H PRN PRN Reason: fever, pain Metronidazole (Flagyl) 500 mg in 100 mls @ 100 mls/hr IV Q8H [facility] Last Infusion: 04/17/23 09:47 Dose: 0 mls/hr Documented By: MARCO ANTONIO Ceftriaxone Sodium 2 gm/ (Sodium Chloride) 50 mls @ 100 mls/hr IV Q12H [facility] Last Infusion: 04/17/23 08:25 Dose: 0 mls/hr Documented By: MARCO ANTONIO Morphine Sulfate (Morphine Sulfate 4 Mg/Ml Cartridge) 4 mg IVPUSH Q4H PRN; Protocol PRN Reason: pain, severe Last Admin: 04/14/23 21:13 Dose: 4 mg Documented By: FADY Ondansetron HCl (Ondansetron Hcl 4 Mg/2 Ml Vial) 4 mg IVPUSH Q8H PRN PRN Reason: nausea Last Admin: 04/12/23 07:36 Dose: 4 mg Documented By: IRENE Oxycodone HCl (Oxycodone Hcl Immed Release 5 Mg Tablet) 10 mg PO Q4H PRN PRN Reason: pain, moderate Last Admin: 04/17/23 08:26 Dose: 10 mg Documented By: MARCO ANTONIO Oxycodone HCl (Oxycodone Hcl Immed Release 5 Mg Tablet) 5 mg PO Q4H PRN PRN Reason: Pain, Moderate(Pain Scale 4-6) Pharmacy Consult (Consult Rx Perform Med Rec) 1 each MISCELLANE ONCE PRN PRN Reason: Consult order Sodium Chloride (0.9 % Sodium Chloride Flush 3 Ml Syringe) 3 ml IVFLUSH QSHIFT [facility] Last Admin: 04/17/23 07:43 Dose: 3 ml Documented By: MARCO ANTONIO Labs 04/16/23 05:51 04/14/23 05:16 Procedures Date of Service Date of Service: 04/17/23 Progress Note: A&P Assessment and plan (1) Acute appendicitis with rupture: Status: Acute Plan Continue present management Okay to change dressings as needed Dr. Mendoza to resume care 04/18 Time Spent With Patient Time: Total time managing care of this patient today ____ minutes. Quality Stroke Does the patient have a stroke diagnosis?: No VTE Prior VTE?: No VTE Risk Level:: Medical - low VTE Device Contraindication: N/A - Device Ordered VTE Drug Contraindication: Treatment Not Indicated
[2023-04-17 16:17] VITALS: BP 144/86; PULSE 75; RESP 18; TEMP 36.4; O2SAT 98
[2023-04-17 19:24] VITALS: BP 134/83; PULSE 73; RESP 20; TEMP 36.4; O2SAT 97
[2023-04-17] MEDS: Acetaminophen 325 MG TABLET 650 MG PO (19:38)
[2023-04-18] MEDS: metroNIDAZOLE/NS 500 MG/100 ML PIGGYBACK 100 MG IV ×3 (00:08→17:05)
[2023-04-18 03:15] VITALS: BP 124/78; PULSE 73; RESP 16; TEMP 36.1; O2SAT 96
[2023-04-18 07:22] VITALS: BP 142/85; PULSE 72; RESP 16; TEMP 36.2; O2SAT 96
[2023-04-18] MEDS: cefTRIAXone sodium 2 GM in 0.9 % Sodium Chloride 50 ML IV ×2 (07:38→20:50)
[2023-04-18] MEDS: 0.9 % Sodium Chloride Flush 3 ML SYRINGE IVFLUSH ×3 (07:39→20:50)
--- NOTE | 2023-04-18 07:50 | P.PNGS_ITS ---
Subjective Subjective Date of Service: 04/18/23 Interval history: says he feels better some incision pain but improved passing flatus well tolerating full liq Physical Exam Vital Signs: Vital Signs: Last Vital Signs Temp 97.1 F 04/18/23 07:22 Pulse 72 04/18/23 07:22 Resp 16 04/18/23 07:22 BP 142/85 H 04/18/23 07:22 Pulse Ox 96 04/18/23 07:22 O2 Del Method Room Air 04/18/23 07:22 O2 Flow Rate 2 04/11/23 07:43 BMI result Body Mass Index 34.9 Const: Other: looks well General: comfortable and no acute distress Resp: Effort & Inspection: normal respiratory effort Cardio: Rate: regular rate GI: Other: incision clean, with seropurulent discharge on mid portion, no cellulitis Palpation (GI): Soft to palpation, not firm and no guarding Objective Data Active Medications Acetaminophen (Acetaminophen 325 Mg Tablet) 650 mg PO Q6H PRN PRN Reason: fever, pain Last Admin: 04/17/23 19:38 Dose: 650 mg Documented By: ALICIA Metronidazole (Flagyl) 500 mg in 100 mls @ 100 mls/hr IV Q8H [facility] Last Infusion: 04/18/23 01:10 Dose: 0 mls/hr Documented By: ALICIA Ceftriaxone Sodium 2 gm/ (Sodium Chloride) 50 mls @ 100 mls/hr IV Q12H [facility] Last Admin: 04/18/23 07:38 Dose: 100 mls/hr Documented By: MARCO ANTONIO Morphine Sulfate (Morphine Sulfate 4 Mg/Ml Cartridge) 4 mg IVPUSH Q4H PRN; Protocol PRN Reason: pain, severe Last Admin: 04/14/23 21:13 Dose: 4 mg Documented By: FADY Ondansetron HCl (Ondansetron Hcl 4 Mg/2 Ml Vial) 4 mg IVPUSH Q8H PRN PRN Reason: nausea Last Admin: 04/12/23 07:36 Dose: 4 mg Documented By: IRENE Oxycodone HCl (Oxycodone Hcl Immed Release 5 Mg Tablet) 10 mg PO Q4H PRN PRN Reason: pain, moderate Last Admin: 04/17/23 19:38 Dose: 10 mg Documented By: ALICIA Oxycodone HCl (Oxycodone Hcl Immed Release 5 Mg Tablet) 5 mg PO Q4H PRN PRN Reason: Pain, Moderate(Pain Scale 4-6) Pharmacy Consult (Consult Rx Perform Med Rec) 1 each MISCELLANE ONCE PRN PRN Reason: Consult order Sodium Chloride (0.9 % Sodium Chloride Flush 3 Ml [facility]) [facility] Last Admin: 04/18/23 07:39 Dose: 3 ml Documented By: MARCO ANTONIO Vasquez 04/16/23 05:51 04/14/23 05:16 Procedures Date of Service Date of Service: 04/18/23 Progress Note: A&P Assessment and plan (1) Acute appendicitis with rupture: Status: Acute Assessment and Plan: doing well diet as tolerated encouraged ambulation dressings changed - has infection on incision (patient had perforated appendicitis with extrraluminal stool) likely home tomorrow continue abx Time Spent With Patient Time: Total time managing care of this patient today ____ minutes. Quality Stroke Does the patient have a stroke diagnosis?: No VTE Prior VTE?: No VTE Risk Level:: Medical - low VTE Device Contraindication: N/A - Device Ordered VTE Drug Contraindication: Treatment Not Indicated
--- NOTE | 2023-04-18 11:10 | MHC.CM.PN ---
PER MD NOTE, PT EXPECTED TO DC TOMORROW DCP: HOME NO SERVICES VIA PRIVATE TRANSPORT
[2023-04-18 15:05] VITALS: BP 130/79; PULSE 72; RESP 18; TEMP 37.1; O2SAT 96
[2023-04-18 19:19] VITALS: BP 126/81; PULSE 81; RESP 18; TEMP 36.3; O2SAT 97
[2023-04-19] MEDS: metroNIDAZOLE/NS 500 MG/100 ML PIGGYBACK 100 MG IV ×2 (00:30→08:55)
[2023-04-19 07:21] VITALS: BP 132/69; PULSE 68; RESP 16; TEMP 36; O2SAT 97
[2023-04-19] MEDS: cefTRIAXone sodium 2 GM in 0.9 % Sodium Chloride 50 ML IV (08:19)
[2023-04-19] MEDS: 0.9 % Sodium Chloride Flush 3 ML SYRINGE IVFLUSH (08:20)
--- NOTE | 2023-04-19 12:04 | PM.PNGS ---
Subjective Subjective Date of Service: 04/19/23 Interval history: He says he continues to feel well tolerating diet well good GI function says he is ready to be discharged Physical Exam Vital Signs: Vital Signs: Last Vital Signs Temp 96.8 F 04/19/23 07:21 Pulse 68 04/19/23 07:21 Resp 16 04/19/23 07:21 BP 132/69 04/19/23 07:21 Pulse Ox 97 04/19/23 07:21 O2 Del Method Room Air 04/19/23 07:21 O2 Flow Rate 2 04/11/23 07:43 BMI result Body Mass Index 34.9 Const: General: comfortable and no acute distress Resp: Effort & Inspection: normal respiratory effort GI: Other: some discharge from the mid part of the incision, probed with a Q-tip Palpation (GI): Soft to palpation, nontender and no guarding Objective Data Active Medications Acetaminophen (Acetaminophen 325 Mg Tablet) 650 mg PO Q6H PRN PRN Reason: fever, pain Last Admin: 04/17/23 19:38 Dose: 650 mg Documented By: ALICIA Metronidazole (Flagyl) 500 mg in 100 mls @ 100 mls/hr IV Q8H [facility] Last Infusion: 04/19/23 09:56 Dose: 0 mls/hr Documented By: MAURICE Ceftriaxone Sodium 2 gm/ (Sodium Chloride) 50 mls @ 100 mls/hr IV Q12H [facility] Last Infusion: 04/19/23 08:52 Dose: 0 mls/hr Documented By: MAURICE Morphine Sulfate (Morphine Sulfate 4 Mg/Ml Cartridge) 4 mg IVPUSH Q4H PRN; Protocol PRN Reason: pain, severe Last Admin: 04/14/23 21:13 Dose: 4 mg Documented By: FADY Ondansetron HCl (Ondansetron Hcl 4 Mg/2 Ml Vial) 4 mg IVPUSH Q8H PRN PRN Reason: nausea Last Admin: 04/12/23 07:36 Dose: 4 mg Documented By: GRAZLIZETH Oxycodone HCl (Oxycodone Hcl Immed Release 5 Mg Tablet) 10 mg PO Q4H PRN PRN Reason: pain, moderate Last Admin: 04/17/23 19:38 Dose: 10 mg Documented By: ALICIA Oxycodone HCl (Oxycodone Hcl Immed Release 5 Mg Tablet) 5 mg PO Q4H PRN PRN Reason: Pain, Moderate(Pain Scale 4-6) Sodium Chloride (0.9 % Sodium Chloride Flush 3 Ml Syringe) 3 ml IVFLUSH QSHIFT YESICA Last Admin: 04/19/23 08:20 Dose: 3 ml Documented By: MAURICE Labs 04/16/23 05:51 04/14/23 05:16 Procedures Date of Service Date of Service: 04/19/23 Progress Note: A&P Assessment and plan (1) Acute appendicitis with rupture: Status: Acute Assessment and Plan: status post appendectomy via midline he continues to do well good GI function no fever dressings replaced okay to DC home today on p.o. antibiotics will see in the office next week explained instructions the patient Time Spent With Patient Time: Total time managing care of this patient today ____ minutes. Quality Stroke Does the patient have a stroke diagnosis?: No VTE Prior VTE?: No VTE Risk Level:: Medical - low VTE Device Contraindication: N/A - Device Ordered VTE Drug Contraindication: Treatment Not Indicated
--- NOTE | 2023-04-19 12:26 | MHC.CM.PN ---
Patient is discharged to home today self-care. Patient will arrange for a ride home.
--- NOTE | 2023-04-21 10:10 | PM.DS ---
DS: Providers Provider Date of Service: 04/19/23 Date of admission: 04/10/23 16:52 Primary care physician: None Physician Attending physician on admission: Kingsley Mendoza Attending physician on discharge: Kingsley Mendoza DS: Diagnosis Discharge Diagnosis (1) Acute appendicitis with rupture: Status: Acute DS: Summary Hospital Course Hospital Course: HPI AT ADMISSION: Dayron Torres is a 37 year old male here in the ED for right sided abdominal pain x 3 days. He says this has been persistent. He describes some nausea and vomitting 2 days ago. He feels that the pain on the right side has been worsening.He says he has never had similar episodes in the past. He denies signficant medical problems. He has never had abdominal surgery. He does have some chills at home. He also describes some loose stools. He does not have any primary care physician. He was febrile to 103 with a leukocytosis of 22. CT scan was consistent with perforated appendicitis with surrounding inflammatory changes. HOSPITAL COURSE: ?The patient was admitted to the surgical service for further treatment of the sepsis, perforated appendicitis. He was started on IV zosyn, IVF, PRN analgesics for pain and kept NPO. It was recommended to proceed with laparoscopic appendectomy and possible open.?It was discussed there is a high likelihood that he may need to proceed with the laparotomy incision, resect part of the cecum given the dense inflammatory changes.? On 04/10/23, attempted laparoscopic appendectomy, converted to open appendectomy via laparotomy incision. He was found to have acute perforated appendicitis, with feculent and purulent collection, gangrenous appendix surrounded by matted loops of small bowel and mesentery and surrounding peritonitis. He tolerated the procedure well. He had a slow recovery course and developed a post operative ileus. He was initially doing well post operatively but developed nausea, vomiting and abdominal distention requiring NGT decompression. Repeat CT scan was performed given the significant inflammatory changes which was consistent with post op ileus. His NGT remained in place until his symptoms improved and he began passing flatus. It was trial clamped and removed. His diet was slowly advanced to clear liquids and then solids as tolerated. His WBC continually downtrended and normalized. His abx were tailored to the intraop peritoneal cultures positive for E coli and bacteroides and he was started on rocephin and flagyl. He developed some incisional drainage and erythema and some chas were removed and wound probed with evacuation of purulent drainage. This slowly improved. His KWESI drain had scant serous output and was removed. On the day of discharge, he was tolerating a solid diet without nausea or vomiting, his abdominal pain was controlled with PO analgesics and was moving his bowels. His abdomen was soft with mild incisional tenderness. He was discharged to home on a course of PO levaquin. He is to follow up in the office in 1 week. Status at Discharge Functional status at discharge: independent ambulation Overall status at discharge: patient is progressing back to baseline Time Spent with Patient Time attestation: Total time managing care of this patient today ____ minutes. Discharge coordination time: Less than 30 minutes Quality: Safe Use of Opioids Does Pt have an Active Cancer Diagnosis on the Problem List?: No Quality: Stroke Does the patient have a stroke diagnosis?: No Physical Exam Vital Signs: Vital Signs: Last Vital Signs Temp 96.8 F 04/19/23 07:21 Pulse 68 04/19/23 07:21 Resp 16 04/19/23 07:21 BP 132/69 04/19/23 07:21 Pulse Ox 97 04/19/23 07:21 O2 Del Method Room Air 04/19/23 07:21 O2 Flow Rate 2 04/11/23 07:43 BMI result Body Mass Index 34.9 Const: General: comfortable, no acute distress and alert Orientation/consciousness: patient oriented x3 Resp: Effort & Inspection: normal respiratory effort GI: Inspection: No distended and Yes incision (some drainage, erythema improved) Palpation (GI): Soft to palpation, Tenderness to palpation present (GI), no guarding and not rigid Skin: General skin exam: no rashes or lesions noted Neuro: General: patient oriented x3 and moves all extremities DS: Data Data Completed and Pending Completed studies during hospitalization [Text1]: 04/10/23 19:12 Surgical [PTH] Routine Vermiform appendix, appendectomy:? Suppurative and gangrenous appendicitis and periappendicitis. Discharge Plan Discharge Anticipated Discharge Date/Time: 04/19/23 18:08 Patient Disposition: Home, Self-Care Discharge Diagnosis: acute perforated appendicitis Referrals: Kingsley Mendoza MD [Physician] - 1 Week Physician,None [Primary Care Provider] - 1 Week Discharge Medications: New levofloxacin 500 mg tablet 500 mg PO DAILY Qty: 7 0RF oxycodone 5 mg tablet 5 mg PO Q4H PRN (Reason: pain (scale score 7-10)) Qty: 24 0RF Rx Instructions: Partial Fill upon patient request. acetaminophen 500 mg tablet 1,000 mg PO Q6H PRN (Reason: pain) Qty: 30 0RF Continued ibuprofen 200 mg Tablet 400 mg PO Q8H PRN (Reason: Pain) bismuth subsalicylate 525 mg/15 mL Suspension 525 mg PO Q30M PRN (Reason: Diarrhea / upset stomach) Rx Instructions: do not exceed 8 doses in a 24 hour period Discharge Orders: Discharge Order (Routine); Ordered 04/19/23 Ordered By: Kingsley Mendoza Diet: Advance to usual diet Activity on Discharge: No heavy lifting Stand Alone Forms: Patient Portal Discharge page Activity Restrictions/Additional Instructions: If the incision area is tender, you may apply an ice pack for short intervals (No more than 20 minutes on, followed by at least 20 minutes off). Do not apply heat. Do not use creams, lotions, or topical antibiotics. These can cause infection or allergic reaction. Ok to shower. You have chas closing your incision and these will be removed approximately 10-14 days after surgery. Keep clean dressing on incision while it continues to drain. Change daily. NO HEAVY LIFTING (>10lbs) or strenuous activity. Follow up in office. ([phone]) Call Your Doctor If: -Your temperature exceeds 101.5? F -You experience excessive pain or swelling -You have an unexpected reaction to medication -You have excessive bleeding -You experience continued vomiting/nausea -Your incision begins to separate more Care Plan Goals: Return to baseline health and resume normal activities following recovery period. Wound healing. Health Concerns: perforated appendicitis infected wound Plan of Treatment: PO abx Pain control Dressing changes F/u in office in 1 week. Assessment: Doing well post op. Discharge Date/Time: 04/19/23 13:35
== END 2023-04-19 13:35 | disposition home or self-care (01) | DRG 233 ==
LOC: HO.ED 18:02 → HO.EDOVER 20:18 → HO.S3 20:22
PROVIDERS: Physician Assistant; Physician Assistant Medical; Physician Assistant Surgical; Admitting Provider Surgery; Emergency Provider Emergency Medicine Emergency Medical Services; Visit Provider Surgery
PROC: 0DTJ4ZZ Resection of Appendix, Percutaneous Endoscopic Approach (ICD-10-PCS; CPT 44970; principal; 2023-04-10 17:05)
DX: K35.32 Acute appendicitis with perforation, localized peritonitis, and gangrene, without abscess (principal); K56.7 Ileus, unspecified; Z20.822 Contact with and (suspected) exposure to COVID-19; Z79.899 Other long term (current) drug therapy
CPT/HCPCS: 36415; 74018; 74177; 80048; 80053; 81001; 83605; 83690; 85025; 85027; 86850; 86900; 86901; 87040; 87070; 87073; 87076; 87077; 87186; 87205; 87493; 87502; 87507; 87635; 88304; 99285; C1758; J0131; J0696; J1100; J2250; J2270; J2405; J2543; J2795; J3010; Q9967

== ENCOUNTER → 2023-04-10 16:52 | Outpatient (BNV) | payer MEDICAID, SELFPAY | PROVIDERS: Admitting Provider Surgery; Emergency Provider Emergency Medicine Emergency Medical Services; Visit Provider Surgery | DX: K35.32 Acute appendicitis with perforation, localized peritonitis, and gangrene, without abscess (principal) | CPT/HCPCS: 44950; 99024; 99222; 99238; 99499 ==

== ENCOUNTER → 2023-04-28 10:05 | Outpatient (BNVA) | payer MEDICAID, SELFPAY | PROVIDERS: Visit Provider Surgery ==

== ENCOUNTER 2023-05-05 00:17 | Emergency (ER) | payer MEDICAID, OTHER, SELFPAY ==
[2023-05-05 00:22] VITALS: BP 136/86; PULSE 94; RESP 18; TEMP 37.4; O2SAT 94; BMI 29.6
[2023-05-05 01:08] VITALS: BP 115/74; PULSE 86; RESP 18; TEMP 37.6; O2SAT 97
[2023-05-05 01:19] LABS: MANUAL DIFF FLAG NO
[2023-05-05 01:20] LABS: Basophils Percent Auto 0.2 % (0-2); Eosinophils Absolute Auto 0.2 X10*3/uL (0.0-0.4); Eosinophils Percent Auto 2.6 % (0-4); Hematocrit 33.2 % (42.0-52.0); Hemoglobin 11.5 g/dl (14.0-18.0); Imm Gran Abs Auto 0.02 X10*3/uL (0.00-0.03); Imm Gran Pct Auto 0.3 % (0.0-0.4); Lymphocytes Absolute Auto 2.2 X10*3/uL (1.2-4.9); Lymphocytes Percent Auto 33.1 % (20-40); Mean Corpuscular HGB Conc 34.6 g/dl (31.0-36.0); Mean Corpuscular Hemoglobin 30.4 pg (27.0-33.0); Mean Corpuscular Volume 87.8 fL (80.0-98.0); Mean Platelet Volume 9.3 fL (9.4-12.4); Monocytes Absolute Auto 0.7 X10*3/uL (0.1-1.2); Monocytes Percent Auto 10.8 % (2-11); Neutrophils Absolute Auto 3.5 x10*3/uL (2.0-8.3); Platelet Count 352 X10*3/uL (160-400); Red Blood Count 3.78 X10*6/uL (4.60-5.80); Red Cell Distribution Width 11.8 % (11.0-16.0); White Blood Count 6.6 X10*3/uL (4.8-10.8)
[2023-05-05 01:24] LABS: Appearance Urine Clear; Color Urine Dark Yellow; Glucose Urine UA Negative (Negative); Leukocyte Esterase Urine Negative (Negative); Nitrite Urine Negative (Negative); PH 5.5 (5.0-9.0); Specific Gravity - Urine >= 1.030 (1.005-1.025); Urine Blood Negative (Negative); Urine Ketones Negative (Negative); Urine Protein Trace mg/dL (Neg-Trace)
[2023-05-05 01:25] LABS: Lactic Acid 1.3 mmol/L (0.5-2.0)
[2023-05-05 01:41] LABS: Alanine Aminotransferase 23 U/L (0-40); Albumin Level 4.2 g/dL (3.5-5.0); Alkaline Phosphatase 85 U/L (39-117); Anion Gap 12 (12-20); Aspartate Amino Transferase 24 U/L (5-37); Bilirubin Total 0.3 mg/dL (0.0-1.0); Blood Urea Nitrogen 10 mg/dL (9-16); Carbon Dioxide 27 mmol/L (22-29); Chloride 108 mmol/L (96-108); Creatinine Clr Calc Pharmacy 133.4; Estimated Glomerular Filt Rate > 60; Glucose Random 104 mg/dL (60-115); Potassium 3.7 mmol/L (3.3-5.1); Sodium 143 mmol/L (135-145); Total Protein 7.4 g/dL (6.5-8.0)
[2023-05-05 02:00] VITALS: BP 109/69; PULSE 75; RESP 18; TEMP 37.3; O2SAT 95
--- NOTE | 2023-05-05 02:09 | ED_ITS ---
HPI - General Adult General Chief complaint: Wound/Laceration Stated complaint: Stomach worm? 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 S/p appendectomy on 04/12, has midline infraumbilical incision staple still intact, when patient change his dressing part of the packing came out with a foul smell with some discharge, patient is supposed to see the surgeon today for staple removal, no fever, no chills, no abdominal pain, no discomfort or pain around the incision. Related Data Home Medications Medication Instructions Recorded Confirmed bismuth subsalicylate 525 mg/15 mL 525 mg PO Q30M PRN Diarrhea / 04/10/23 04/10/23 oral suspension upset stomach ibuprofen 200 mg tablet 400 mg PO Q8H PRN Pain 04/10/23 04/10/23 Previous Rx's Medication Instructions Recorded acetaminophen 500 mg tablet 1,000 mg PO Q6H PRN pain #30 tabs 04/19/23 levofloxacin 500 mg tablet 500 mg PO DAILY #7 tabs 04/19/23 oxycodone 5 mg tablet 5 mg PO Q4H PRN pain (scale score 04/19/23 7-10) #24 tabs cephalexin 500 mg capsule 500 mg PO BID 7 days #14 caps 05/05/23 sulfamethoxazole 800 1 tab PO BID #14 tabs 05/05/23 mg-trimethoprim 160 mg tablet (Bactrim DS) Allergies Allergy/AdvReac Type Severity Reaction Status Date / Time No Known Allergies Allergy Verified 04/10/23 13:07 Review of Systems 2 Review of Systems: All other systems are reviewed and are negative Constitutional: Reports as per HPI and Reports no additional constitutional complaints Eyes: Reports as per HPI and Reports no additional eye complaints Reports system reviewed and no additional complaints, except as documented Cardiovascular: Reports as per HPI and Reports no additional cardiovascular complaints Respiratory: Reports as per HPI and Reports no additional respiratory complaints Gastrointestinal: Reports as per HPI and Reports no additional gastrointestinal complaints Genitourinary: Reports no additional female genitourinary complaints Musculoskeletal: Reports no additional musculoskeletal complaints Skin/Breast: Reports system reviewed and no additional complaints, except as docu Psychiatric: Reports no additional psychiatric complaints Endocrine: Reports no additional endocrine complaints Hematologic/Lymphatic: Reports no additional hematologic/lymphatic complaints Allergic/Immunologic: Reports no additional allergic/immunologic complaints Reports system reviewed and no additional complaints, except as documented and Reports Abnormal speech present [facility] Past Medical History Surgical History History of surgical procedure (~04/10/23) Social History Social History Household Members: Spouse Housing: House Do you presently have visiting nurse or other home services: No Patient Tobacco Use Status: Never used Tobacco Advance Directives: No Advance Directives Information Provided: Yes service: No Physical Exam ED Vital Signs: Vital Signs - 24 hr 05/05/23 00:22 05/05/23 01:08 Temperature 99.4 F 99.6 F Pulse Rate 94 86 Respiratory Rate 18 18 Blood Pressure 136/86 115/74 Pulse Oximetry 94 97 Oxygen Delivery Method Room Air Room Air BMI result Body Mass Index 29.6 Vital signs have been reviewed as appeared to be correct. Blood pressure normal. Heart rate normal. Respiration rate normal. Temperature normal. Oxygen saturation normal. Appearance: Alert. Oriented X3. No acute distress. Head: Normal external exam. Normocephalic. Atraumatic. No Raymundo signs noted. No raccoon eyes noted Eyes: PERRLA. EOMI. Conjunctiva and sclera normal. Eyelids normal. ENT: TM's Normal. Pharynx normal. Uvula midline. Moist mucous membranes. No trismus noted. No drooling noted. No muffled voice noted. Neck: Normal inspection. Neck supple. FROM. No adenopathy. Thyroid Normal. No meningeal signs. No neck mass noted. CVS: Normal heart rate and rhythm. Heart sound normal. No murmurs noted. Pulses normal throughout. Respiratory: No respiratory distress. Painless inspiration. Breath sounds normal. No wheezes/rales/rhonchi noted. Chest nontender. No accessory muscle usage noted or decreased air movement noted. Abdomen: Soft and nontender. Bowel sounds normal in all 4 quadrants. No distention noted. No organomegaly noted. No visible injury noted. Surgical incision staple is intact, foul smell out of the incision, packing is hanging out of the wound, no tenderness, no fluctuation. Back: No CVA tenderness. Full range of motion noted. Skin: Skin warm and dry. Normal skin color. Normal skin turgor. No rashes/lesions/lacerations noted. Extremities: No lower extremity edema. Extremities exhibit normal range of motion. Extremities nontender. Neuro: Oriented X 3. Cranial nerve exam: II-XII are grossly intact No motor deficit. No sensory deficit. Reflexes normal. Course Course Course Narrative: 37-year-old male s/p appendectomy came in here today for concern of infection of the surgical incision. Physical exam is showing mild infection with no discrete abscess or fluctuation, abdomen is nontender, labs none revealing for sepsis or infection. Patient has an appointment today with the surgeon at 16:00 for staple removal will start the patient on Keflex and Bactrim for antibiotic coverage. Patient was encouraged to keep the appointment with the surgeon. Medical Decision Making Differential Diagnosis Differential Diagnoses: The differential diagnosis associated with the presentation includes (Wound infection, sepsis, abscesses, severe anemia, electrolyte abnormality.) Admission/Observation Consideration of admission/observation: Escalation of care including admission/observation considered Lab Data MDM Lab Attestation statement: I reviewed the patient's lab results. 05/05/23 01:11 05/05/23 01:11 Labs: Lab Results 05/05/23 05/05/23 05/05/23 Range/Units 01:11 01:11 01:11 WBC 6.6 (4.8-10.8) X10*3/uL RBC 3.78 L (4.60-5.80) X10*6/uL Hgb 11.5 L (14.0-18.0) g/dl Hct 33.2 L (42.0-52.0) % MCV 87.8 (80.0-98.0) fL MCH 30.4 (27.0-33.0) pg MCHC 34.6 (31.0-36.0) g/dl RDW 11.8 (11.0-16.0) % Plt Count 352 (160-400) X10*3/uL MPV 9.3 L (9.4-12.4) fL Immature Gran % (Auto) 0.3 (0.0-0.4) % Neut % (Auto) 53.0 (45-73) % Lymph % (Auto) 33.1 (20-40) % [place] % (Auto) 10.8 (2-11) % Eos % (Auto) 2.6 (0-4) % Baso % (Auto) 0.2 (0-2) % Lymph # (Auto) 2.2 (1.2-4.9) X10*3/uL [place] # (Auto) 0.7 (0.1-1.2) X10*3/uL Eos # (Auto) 0.2 (0.0-0.4) X10*3/uL Baso # (Auto) 0.0 (0.0-0.2) X10*3/uL Abs Immat Gran (auto) 0.02 (0.00-0.03) X10*3/uL Absolute Neuts (auto) 3.5 (2.0-8.3) x10*3/uL Absolute Nucleated RBC 0.000 (0.0-0.012) X10*3/uL Nucleated RBC % (auto) 0.0 (0.0-0.2) /100WBC Sodium 143 (135-145) mmol/L Potassium 3.7 (3.3-5.1) mmol/L Chloride 108 (96-108) mmol/L Carbon Dioxide 27 (22-29) mmol/L Anion Gap 12 (12-20) BUN 10 (9-16) mg/dL Creatinine 0.66 (0.5-1.4) mg/dL Estim Creat Clear Calc 133.4 Estimated GFR > 60 Random Glucose 104 (60-115) mg/dL Lactic Acid 1.3 (0.5-2.0) mmol/L Calcium 10.0 D (8.4-10.2) mg/dL Total Bilirubin 0.3 (0.0-1.0) mg/dL AST 24 (5-37) U/L ALT 23 (0-40) U/L Alkaline Phosphatase 85 (39-117) U/L Total Protein 7.4 (6.5-8.0) g/dL Albumin 4.2 (3.5-5.0) g/dL Urine Color Urine Appearance Urine pH (5.0-9.0) Ur Specific Tiro (1.005-1.025) Urine Protein (Neg-Trace) mg/dL Urine Glucose (UA) (Negative) mg/dL Urine Ketones (Negative) mg/dL Urine Blood (Negative) Urine Nitrite (Negative) Ur Leukocyte Esterase (Negative) 05/05/23 Range/Units 01:17 WBC (4.8-10.8) X10*3/uL RBC (4.60-5.80) X10*6/uL Hgb (14.0-18.0) g/dl Hct (42.0-52.0) % MCV (80.0-98.0) fL MCH (27.0-33.0) pg MCHC (31.0-36.0) g/dl RDW (11.0-16.0) % Plt Count (160-400) X10*3/uL MPV (9.4-12.4) fL Immature Gran % (Auto) (0.0-0.4) % Neut % (Auto) (45-73) % Lymph % (Auto) (20-40) % [place] % (Auto) (2-11) % Eos % (Auto) (0-4) % Baso % (Auto) (0-2) % Lymph # (Auto) (1.2-4.9) X10*3/uL [place] # (Auto) (0.1-1.2) X10*3/uL Eos # (Auto) (0.0-0.4) X10*3/uL Baso # (Auto) (0.0-0.2) X10*3/uL Abs Immat Gran (auto) (0.00-0.03) X10*3/uL Absolute Neuts (auto) (2.0-8.3) x10*3/uL Absolute Nucleated RBC (0.0-0.012) X10*3/uL Nucleated RBC % (auto) (0.0-0.2) /100WBC Sodium (135-145) mmol/L Potassium (3.3-5.1) mmol/L Chloride (96-108) mmol/L Carbon Dioxide (22-29) mmol/L Anion Gap (12-20) BUN (9-16) mg/dL Creatinine (0.5-1.4) mg/dL Estim Creat Clear Calc Estimated GFR Random Glucose (60-115) mg/dL Lactic Acid (0.5-2.0) mmol/L Calcium (8.4-10.2) mg/dL Total Bilirubin (0.0-1.0) mg/dL AST (5-37) U/L ALT (0-40) U/L Alkaline Phosphatase (39-117) U/L Total Protein (6.5-8.0) g/dL Albumin (3.5-5.0) g/dL Urine Color Dark Yellow Urine Appearance Clear Urine pH 5.5 (5.0-9.0) Ur Specific Tiro >= 1.030 H (1.005-1.025) Urine Protein Trace (Neg-Trace) mg/dL Urine Glucose (UA) Negative (Negative) mg/dL Urine Ketones Negative (Negative) mg/dL Urine Blood Negative (Negative) Urine Nitrite Negative (Negative) Ur Leukocyte Esterase Negative (Negative) Discharge Plan Discharge Clinical Impression: Postoperative complication of skin involving drainage from surgical wound Patient Disposition: Home, Self-Care Instructions: Surgical Site Infections (ED) Prescriptions: New cephalexin 500 mg capsule 500 mg PO BID 7 Days Qty: 14 0RF sulfamethoxazole-trimethoprim [Bactrim DS] 800-160 mg tablet 1 tab PO BID Qty: 14 0RF No Action ibuprofen 200 mg Tablet 400 mg PO Q8H PRN (Reason: Pain) bismuth subsalicylate 525 mg/15 mL Suspension 525 mg PO Q30M PRN (Reason: Diarrhea / upset stomach) Rx Instructions: do not exceed 8 doses in a 24 hour period levofloxacin 500 mg tablet 500 mg PO DAILY Qty: 7 0RF oxycodone 5 mg tablet 5 mg PO Q4H PRN (Reason: pain (scale score 7-10)) Qty: 24 0RF Rx Instructions: Partial Fill upon patient request. acetaminophen 500 mg tablet 1,000 mg PO Q6H PRN (Reason: pain) Qty: 30 0RF Referrals: Kingsley Mendoza MD [Physician] - 1 day (Keep your appointment as scheduled.)
[2023-05-05] MEDS: Sulfamethox/Trimeth 800/160 TABLET 1 TAB PO (02:32)
[2023-05-05] MEDS: cephALEXin 500 MG CAPSULE PO (02:32)
--- NOTE | 2023-05-05 02:42 | PC.NURSE ---
PT ambulated into room with steady gait, AOx4, reporting abdominal wound from a appendectomy last month, foul smelling green discharge noted on incision, with surgical packing hanging out through the incision. Wound was cleaned with sterile water, and dressing reapplied with ABD pad, clean dry and intact. Meds given per OCT. VSS.
== END 2023-05-05 02:41 | disposition home or self-care (01) ==
PROVIDERS: Emergency Provider Emergency Medicine
DX: R10.30 Lower abdominal pain, unspecified (principal); Z79.899 Other long term (current) drug therapy; Z48.01 Encounter for change or removal of surgical wound dressing
CPT/HCPCS: 36415; 80053; 81003; 83605; 85025; 87040; 99283

== ENCOUNTER 2023-05-06 13:43 | Outpatient (AMB) | payer MEDICAID, OTHER, SELFPAY ==
[2023-05-06 14:02] VITALS: BP 118/73; PULSE 90
--- NOTE | 2023-05-06 14:02 | A.OFFVIS_ITS ---
Intake Vital Signs 05/06/23 14:02 Height 5 ft 2 in BP 118/73 Blood Pressure Location Lt brachial Position Standing Pulse 90 Intake Visit Reasons: s/p open appendectomy Intake Note: This patient presents for a wound check status post open appendectomy. Patient c/o; wound check. Open Soaper Tender Required: Yes Open Soaper Tender Language: Casing Grader Name: Harley Information Interpreted: non-clinical & clinical Accompanied by: Other Relationship Allergies No Known Allergies Allergy (Verified 05/06/23 14:08) HPI s/p open appendectomy HPI Details 37-year-old male here for follow-up afte r open appendectomy. He had undergone open 04/09/2023. He had perforated appendicitis at that time with note of extraluminal fecaliths and abscess. He was in the hospital for 9 days. He describes drainage from the lower part of his incision. He has good oral intake. He denies problems with bowel movements. He denies any fever or chills. He says he feels well overall. He says that there is some tissue coming out of a small area of his incision. [facility] Surgical History (Updated 05/06/23 @ 14:35 by Kingsley Mendoza MD) Status post appendectomy History of surgical procedure (~04/10/23) Social History Household Members: Spouse Housing: House Do you presently have visiting nurse or other home services: No Patient Tobacco Use Status: Never used Tobacco service: No Review of Systems Const Denies chills and Denies fever(s) Card Denies chest pain at rest and Denies dyspnea on exertion Resp Denies dyspnea on exertion GI Denies abdominal pain, Denies hematochezia and Denies vomiting Physical Exam Vital Signs: Last Vital Signs Pulse 90 05/06/23 14:02 BP 118/73 05/06/23 14:02 Const Other: Looks well General: comfortable and no acute distress Resp Effort & Inspection: normal respiratory effort Cardio Rate: regular rate GI Other: The midline incision actually appears to be healing very well, short skin gap the lower part of the incision with a lot of fibrinous tissue coming out along with part of the stitch, the area was probed with a Q-tip and there seems to be a subcutaneous cavity as well. Currently no bowel seen, no obvious incisional hernia Palpation (GI): Soft to palpation, not firm, nontender and no guarding Assessment & Plan Assessment & Plan (1) Status post appendectomy: Code(s): Z90.49 - Acquired absence of other specified parts of digestive tract Plan: I removed all his skin chas. There was this thick, old fibrinous tissue removed from the incision through the skin defect in the lower part. Part of the which appeared to be with this and I had to cut the stitch Otherwise, there is no obvious hernia. He is doing very well with good GI functions. He feels well subjectively. He is at risk for hernia formation. I will see him again in the office in about 2 weeks for another wound check. He had been instructed to not do any lifting at all. He otherwise has a very benign exam as well. Coding Level of Care Code Global (74724) Diagnoses Status post appendectomy Z90.49
== END 2023-05-06 14:24 | disposition home or self-care (01) ==
PROVIDERS: Visit Provider Surgery
DX: Z90.49 Acquired absence of other specified parts of digestive tract (principal)
CPT/HCPCS: 99024

== ENCOUNTER → 2023-05-06 13:43 | Outpatient (BNVA) | payer MEDICAID, OTHER, SELFPAY | PROVIDERS: Visit Provider Surgery ==

== ENCOUNTER 2023-05-16 11:37 | Outpatient (AMB) | payer MEDICAID, OTHER, SELFPAY ==
--- NOTE | 2023-05-16 11:41 | A.OFFVIS_ITS ---
Intake Vital Signs 05/16/23 11:47 Height 5 ft 2 in Weight 166 lb BMI 30.4 BP 123/72 Blood Pressure Location Lt brachial Position Standing Pulse 86 Intake Visit Reasons: s/p open appendectomy 04/10/2023 Intake Note: This patient presents for a post-op assessment status post open appendectomy. Patient c/o; reports drainage. 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 I had seen him in the office 05/06/2023. I had debrided open part of the wound because of the presence of thick fibrinous tissue. He states he continues to feel better. The open wound on the incision has decreased in size significantly. He has still has some scanty drainage on this residual area He describes what he says was a ?lump? on 1 part of the incision. He has good oral intake. [facility] Surgical History Status post appendectomy History of surgical procedure (~04/10/23) Social History Household Members: Spouse Housing: House Do you presently have visiting nurse or other home services: No Patient Tobacco Use Status: Never used Tobacco service: No Review of Systems Const Denies chills and Denies fever(s) Card Denies chest pain Resp Denies cough GI Denies hematochezia, Denies diarrhea and Denies nausea Denies difficulty urinating Physical Exam Const General: comfortable and no acute distress Resp Effort & Inspection: normal respiratory effort Cardio Rate: regular rate GI Other: Midline incision generally healed except for 1 small area with residual open wound, scanty drainage, vague induration Palpation (GI): Soft to palpation, not firm, nontender and no guarding Assessment & Plan Assessment & Plan (1) Status post appendectomy: Code(s): Z90.49 - Acquired absence of other specified parts of digestive tract Plan: His incision is healing better. He has good oral intake and good bowel movements. I have instructed him on continuing with good wound care. He does have what appears to be a mild indurated area on the mid part of the incision. We cannot rule out an hernia his incision I will see him again in the office in about 2 weeks. Coding Level of Care Code Global (66610) Diagnoses Status post appendectomy Z90.49
[2023-05-16 11:47] VITALS: BP 123/72; PULSE 86; BMI 30.4
== END 2023-05-16 11:52 | disposition home or self-care (01) ==
PROVIDERS: Visit Provider Surgery
DX: Z90.49 Acquired absence of other specified parts of digestive tract (principal)
CPT/HCPCS: 99024

== ENCOUNTER → 2023-05-16 11:37 | Outpatient (BNVA) | payer MEDICAID, OTHER, SELFPAY | PROVIDERS: Visit Provider Surgery ==

== ENCOUNTER 2023-05-30 14:06 | Outpatient (AMB) | payer MEDICAID, OTHER, SELFPAY ==
--- NOTE | 2023-05-30 14:06 | A.OFFVIS_ITS ---
Intake Vital Signs 05/30/23 14:13 Height 5 ft 2 in Weight 169 lb BMI 30.9 BP 132/78 Blood Pressure Location Rt brachial Position Sitting Pulse 99 Intake Visit Reasons: 2 week follow-up s/p appendectomy Intake Note: This patient presents for a two week follow-up assessment status post appendectomy. Patient c/o; denies complaints at this time. Clinical Product Specialist Required: Yes Clinical Product Specialist Language: Manager Of Loss Prevention Operations Name: Harley Accompanied by: Self / Same As Patient Allergies No Known Allergies Allergy (Verified 05/30/23 14:14) HPI 2 week follow-up s/p appendectomy HPI Details He is here for follow-up after appendectomy via an open laparotomy incision last April 16. He currently denies significant complaints. He continues to do well. He says his incision has completely healed. He has good oral intake. He has bowel movements. [facility] Surgical History Status post appendectomy History of surgical procedure (~04/10/23) Social History Household Members: Spouse Housing: House Do you presently have visiting nurse or other home services: No Patient Tobacco Use Status: Never used Tobacco service: No Review of Systems Const Denies chills and Denies fever(s) Card Denies chest pain, Denies dyspnea and Denies dyspnea on exertion Resp Denies cough, Denies dyspnea and Denies dyspnea on exertion GI Denies hematochezia and Denies change in bowel habits Denies hematuria and Denies difficulty urinating Musc Denies back pain and Denies limited range of motion Neuro Denies focal weakness and Denies convulsions Psych Denies depression and Denies mood swings Physical Exam Const General: comfortable and no acute distress Resp Effort & Inspection: normal respiratory effort GI Other: Incision is completely healed Palpation (GI): Soft to palpation, not firm, nontender and no guarding Assessment & Plan Assessment & Plan (1) Status post appendectomy: Code(s): Z90.49 - Acquired absence of other specified parts of digestive tract Plan: His entire incision is completely healed. He is cleared to return to work starting 06/06/2023. He can also follow up on a p.r.n. basis. Coding Level of Care Code Global (09589) Diagnoses Status post appendectomy Z90.49
[2023-05-30 14:13] VITALS: BP 132/78; PULSE 99; BMI 30.9
== END 2023-05-30 14:19 | disposition home or self-care (01) ==
PROVIDERS: Visit Provider Surgery
DX: Z90.49 Acquired absence of other specified parts of digestive tract (principal)
CPT/HCPCS: 99024

== ENCOUNTER → 2023-05-30 14:06 | Outpatient (BNVA) | payer MEDICAID, OTHER, SELFPAY | PROVIDERS: Visit Provider Surgery ==

== ENCOUNTER 2023-12-23 08:04 | Emergency (ER) | payer MEDICAID, OTHER, SELFPAY ==
[2023-12-23 08:15] VITALS: BP 142/97; PULSE 80; RESP 16; TEMP 37; O2SAT 97; BMI 36.2
--- NOTE | 2023-12-23 08:22 | ED_ITS ---
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 Related Data Home Medications ?Medication ?Instructions ?Recorded ?Confirmed bismuth subsalicylate 525 mg/15 mL 525 mg PO Q30M PRN Diarrhea / 04/10/23 04/10/23 oral suspension upset stomach ibuprofen 200 mg tablet 400 mg PO Q8H PRN Pain 04/10/23 04/10/23 Previous Rx's ?Medication ?Instructions ?Recorded acetaminophen 500 mg tablet 1,000 mg (2 x 500 mg) PO Q6H PRN 04/19/23 pain #30 tabs levofloxacin 500 mg tablet 500 mg PO DAILY #7 tabs 04/19/23 oxycodone 5 mg tablet 5 mg PO Q4H PRN pain (scale score 04/19/23 7-10) #24 tabs cephalexin 500 mg capsule 500 mg PO BID 7 days #14 caps 05/05/23 sulfamethoxazole 800 1 tab PO BID #14 tabs 05/05/23 mg-trimethoprim 160 mg tablet (Bactrim DS) amoxicillin 875 mg-potassium 1 tab PO BID 5 days #10 tabs 12/23/23 clavulanate 125 mg tablet Allergies Allergy/AdvReac Type Severity Reaction Status Date / Time No Known Allergies Allergy Verified 12/23/23 08:17 Review of Systems Review of Systems: Pertinent positives and negatives as stated in HPI [facility] Past Medical History Source: nursing notes reviewed Surgical History Status post appendectomy History of surgical procedure (~04/10/23) Social History Social History Household Members: Spouse Housing: House Do you presently have visiting nurse or other home services: No Comment: rings appropriately Patient Tobacco Use Status: Never used Tobacco Advance Directives: No Advance Directives Information Provided: No service: No Physical Exam Vital Signs: Vital Signs: Last Vital Signs Temp 98.6 F 12/23/23 08:15 Pulse 80 12/23/23 08:15 Resp 16 12/23/23 08:15 BP 142/97 H 12/23/23 08:15 Pulse Ox 97 12/23/23 08:15 O2 Del Method Room Air 12/23/23 08:15 BMI result Body Mass Index 36.2 VITAL SIGNS: Reviewed. GENERAL: Well developed, well nourished, in no acute distress. HEAD: Normocephalic/atraumatic EYES: PERRLA, EOMI LUNGS: Normal breath sounds. No adventitious sounds or accessory muscle use. SpO2<97> CARDIOVASCULAR: Regular rate and rhythm without noted murmurs ABDOMEN: Soft, non-tender, non-distended with bowel sounds. MUSCULOSKELETAL: No tenderness, deformities, or effusions noted on gross inspection. EXTREMITIES: No cyanosis, clubbing or edema. LEFT MIDDLE FINGER: Copious bleeding noted from the palmar aspect between DIP and PIP with shaved skin on ice, appears sensation and gross movement are intact SKIN: Inspection of the skin reveals no rashes NEUROLOGIC: Alert and oriented x 4. Strength and sensation to light touch were grossly intact x 4. Medications Administered Discontinued Medications Generic Name Dose Route Start Last Admin Trade Name Freq PRN Reason Stop Dose Admin Acetaminophen 975 mg 12/23/23 08:30 12/23/23 08:49 Acetaminophen 325 Mg Tablet PO 12/23/23 08:31 975 mg ONCE ONE Administration Amoxicillin/Clavulanate Potassium 875 mg 12/23/23 08:33 12/23/23 08:49 Amoxicillin/Potassium Clav 875 Mg Tablet PO 12/23/23 08:34 875 mg ONCE ONE Administration Ibuprofen 400 mg 12/23/23 08:30 12/23/23 08:49 Ibuprofen 400 Mg Tablet PO 12/23/23 08:31 400 mg ONCE ONE Administration Medical Decision Making Medical Decision Making MDM Narrative: 38-year-old male with up-to-date tetanus and sustained finger injury at work, he brought in the shaving of skin which is not able to be replaced, immediate application of Surgicel for hemostasis as well as hemostatic dressing. Patient received combination analgesics as well as initial antibiotics here in the emergency room. He is otherwise directed to work connection and instructed to follow-up with amadeo dahl. Differential Diagnosis Differential Diagnoses: The differential diagnosis associated with the presentation includes Please see the discussion above Admission/Observation Consideration of admission/observation: Escalation of care including admission/observation considered Please see the discussion above Critical Care Time Critical Care Time Critical Care Time: Yes Total Critical Care Time: 30 Attestation: I personally attest to this time spent taking care of the patient. Discharge Plan Discharge Clinical Impression: Injury of left middle finger Patient Disposition: Home, Self-Care Instructions: Finger Laceration (ED) Additional Instructions: 1. Complete antibiotics 2. Tylenol/Ibuprofen for pain 3. Call office of Hand Surgery today and set up appointment for re-evaluation 4. Go to [facility] today Keep dressing in place until seen by either your primary care provider or the hand surgeon. Prescriptions: New amoxicillin-pot clavulanate 875-125 mg tablet 1 tab PO BID 5 Days Qty: 10 0RF No Action ibuprofen 200 mg Tablet 400 mg PO Q8H PRN (Reason: Pain) bismuth subsalicylate 525 mg/15 mL Suspension 525 mg PO Q30M PRN (Reason: Diarrhea / upset stomach) Rx Instructions: do not exceed 8 doses in a 24 hour period levofloxacin 500 mg tablet 500 mg PO DAILY Qty: 7 0RF oxycodone 5 mg tablet 5 mg PO Q4H PRN (Reason: pain (scale score 7-10)) Qty: 24 0RF Rx Instructions: Partial Fill upon patient request. acetaminophen 500 mg tablet 1,000 mg PO Q6H PRN (Reason: pain) Qty: 30 0RF cephalexin 500 mg capsule 500 mg PO BID 7 Days Qty: 14 0RF sulfamethoxazole-trimethoprim [Bactrim DS] 800-160 mg tablet 1 tab PO BID Qty: 14 0RF Referrals: [facility] [Provider Group] Amaris Hope MD [Physician] - Print Language: Estonian
[2023-12-23] MEDS: Acetaminophen 325 MG TABLET 975 MG PO (08:49)
[2023-12-23] MEDS: Amoxicillin/Potassium Clav 875 MG TABLET PO (08:49)
[2023-12-23] MEDS: Ibuprofen 400 MG TABLET PO (08:49)
[2023-12-23 09:42] VITALS: BP 142/97; PULSE 80; RESP 18; TEMP 36.6; O2SAT 97
== END 2023-12-23 09:42 | disposition home or self-care (01) ==
PROVIDERS: Emergency Provider Student in an Organized Health Care Education/Training Program
DX: S61.213A Laceration without foreign body of left middle finger without damage to nail, initial encounter (principal); S69.92XA Unspecified injury of left wrist, hand and finger(s), initial encounter; W31.82XA Contact with other commercial machinery, initial encounter; Y93.G1 Activity, food preparation and clean up; Y92.512 Supermarket, store or market as the place of occurrence of the external cause; Y99.0 Civilian activity done for income or pay
CPT/HCPCS: 12001; 99283; 99284

== ENCOUNTER 2023-12-23 15:00 | Emergency (ER) | payer MEDICAID, OTHER, SELFPAY ==
[2023-12-23 15:13] VITALS: BP 130/90; PULSE 82; RESP 16; TEMP 37; O2SAT 100; BMI 32.9
[2023-12-23] MEDS: Silver Nitrate Applicator STICK..EA. 1 APPL TOPICAL (17:49)
[2023-12-23] MEDS: Tranexamic Acid 1,000 MG in 0.9 % Sodium Chloride 50 ML 360 MG IV (17:49)
--- NOTE | 2023-12-23 17:56 | ED_ITS ---
HPI - General Adult General Chief complaint: Wound/Laceration Stated complaint: was seen earlier, finger lac bleeding again Time Seen by Provider: 12/23/23 16:00 Source: patient Mode of arrival: ambulatory Limitations: no limitations History of Present Illness HPI narrative: 38-year-old male seen this morning for left index finger laceration. patient was seen this morning and had laceration dressed with Surgicel. Patient states still bleeding so he return to the ED. Related Data Home Medications ?Medication ?Instructions ?Recorded ?Confirmed bismuth subsalicylate 525 mg/15 mL 525 mg PO Q30M PRN Diarrhea / 04/10/23 04/10/23 oral suspension upset stomach ibuprofen 200 mg tablet 400 mg PO Q8H PRN Pain 04/10/23 04/10/23 Previous Rx's ?Medication ?Instructions ?Recorded acetaminophen 500 mg tablet 1,000 mg (2 x 500 mg) PO Q6H PRN 04/19/23 pain #30 tabs levofloxacin 500 mg tablet 500 mg PO DAILY #7 tabs 04/19/23 oxycodone 5 mg tablet 5 mg PO Q4H PRN pain (scale score 04/19/23 7-10) #24 tabs cephalexin 500 mg capsule 500 mg PO BID 7 days #14 caps 05/05/23 sulfamethoxazole 800 1 tab PO BID #14 tabs 05/05/23 mg-trimethoprim 160 mg tablet (Bactrim DS) amoxicillin 875 mg-potassium 1 tab PO BID 5 days #10 tabs 12/23/23 clavulanate 125 mg tablet Allergies Allergy/AdvReac Type Severity Reaction Status Date / Time No Known Allergies Allergy Verified 12/23/23 15:15 Review of Systems 2 Review of Systems: left index finger laceration Yes all other systems are reviewed and are negative [facility] Past Medical History Surgical History Status post appendectomy History of surgical procedure (~04/10/23) Social History Social History Household Members: Spouse Housing: House Do you presently have visiting nurse or other home services: No Comment: rings appropriately Patient Tobacco Use Status: Never used Tobacco Advance Directives: No Advance Directives Information Provided: No service: No Physical Exam ED Vital Signs: Vital Signs - 24 hr 12/23/23 18:29 12/23/23 18:49 Temperature 98.2 F 98.2 F Pulse Rate 78 78 Respiratory Rate 18 18 Blood Pressure 128/86 128/86 Pulse Oximetry 100 100 Oxygen Delivery Method Room Air Room Air BMI result Body Mass Index 32.9 Const General: cooperative, healthy appearing, comfortable, no acute distress, well developed, alert, awake and Physically active Orientation/consciousness: oriented to person, oriented to place, oriented to time and patient oriented x3 HENOK Head: Yes normal to inspection, Yes No palpable skull fracture present, Yes normocephalic, Yes atraumatic and No abrasion Eyes General: appearance normal, both eyes and all related structures Neck Neck: Yes normal visual inspection, Yes full ROM, Yes no lymphadenopathy, Yes no meningeal signs, Yes trachea midline, Yes supple, No anterior neck swelling and No tender Chest Chest palpation & inspection: normal inspection of the chest and normal palpation of entire chest wall Resp Effort & Inspection: normal respiratory effort and able to speak in complete sentences Auscultation: clear to auscultation bilaterally Cardio Jugular venous distension: no JVD Heart sounds: S1 normal heart sound present and S2 normal heart sound present GI Inspection: Yes normal to inspection Palpation (GI): Soft to palpation, not firm, nontender, no guarding and not rigid General: Yes no CVA tenderness Back/Spine/Pelvis Back: no CVA tenderness and No back tenderness Skin General skin exam: no rashes or lesions noted, elasticity normal and turgor normal Neuro General: oriented to person, oriented to place, oriented to time, patient oriented x3, gait normal, tone normal, moves all extremities, Normal light touch and pain sensation, no meningeal signs, no focal motor deficits, CN's II-XI intact bilaterally and normal sensation to monofilament Extrem General: Yes normal to inspection, Yes full ROM and Yes capillary refill normal Hand/finger images: 2 1. positive for skin avulsion. Not able to have laceration repair. May likely need skin grafting in the future. Negative for signs of nerve or tendon injury. Active bleeding. 2. Positive for pulsatile mild arterial bleeding Psych Appearance: grossly normal, well kempt and not disheveled Medications Administered Discontinued Medications Generic Name Dose Route Start Last Admin Trade Name Freq PRN Reason Stop Dose Admin Tranexamic Acid 1,000 mg/ 60 mls @ 360 mls/hr 12/23/23 16:00 12/23/23 18:11 Sodium Chloride IV 12/23/23 16:09 Infused ONCE ONE Infusion Silver Nitrate 1 appl 12/23/23 17:08 12/23/23 17:49 Silver Nitrate Applicator Stick..Ea. TOPICAL 12/23/23 17:09 1 appl ONCE ONE Administration Medical Decision Making Medical Decision Making MDM Narrative: 38 yold male presents to the ED for re-evaluation of left index finger laceration with now presenting with arterial pulsatile bleeding. Initially tranexamic acid placed into the wound. still has active bleeding. Dr. Charles came and evaluated patient and placed patient in rubber band tourniquet. Then placed 2 sticks of silver nitrate on finger and bleeding resolved. Xeroform placed.. Patient explained worrisome signs and informed to return to the ED immediately if he has them. Patient informed to follow-up with a hand surgeon and were connection. Differential Diagnosis Differential Diagnoses: The differential diagnosis associated with the presentation includes ( Arterial bleed, skin avulsion,) Admission/Observation Consideration of admission/observation: Escalation of care including admission/observation considered Independent Historian Clinical information obtained from an independent historian. History obtained from or confirmed by: Other ( patient) External Record Review External record reviewed: Other ( prior visit) Prescription Management I considered prescription management with: Pain Medication Discharge Plan Discharge Clinical Impression: Laceration Patient Disposition: Home, Self-Care Instructions: Laceration (ED) Additional Instructions: recommend follow-up with hand surgeon and work connection. Return to the ED immediately for pus discharge, foul odor, increased bleeding, worsening bleeding, numbness/ tingling, inability to move finger, bluish black discoloration, fever, chills, or any other concerning symptoms. Prescriptions: No Action ibuprofen 200 mg Tablet 400 mg PO Q8H PRN (Reason: Pain) bismuth subsalicylate 525 mg/15 mL Suspension 525 mg PO Q30M PRN (Reason: Diarrhea / upset stomach) Rx Instructions: do not exceed 8 doses in a 24 hour period levofloxacin 500 mg tablet 500 mg PO DAILY Qty: 7 0RF oxycodone 5 mg tablet 5 mg PO Q4H PRN (Reason: pain (scale score 7-10)) Qty: 24 0RF Rx Instructions: Partial Fill upon patient request. acetaminophen 500 mg tablet 1,000 mg PO Q6H PRN (Reason: pain) Qty: 30 0RF cephalexin 500 mg capsule 500 mg PO BID 7 Days Qty: 14 0RF sulfamethoxazole-trimethoprim [Bactrim DS] 800-160 mg tablet 1 tab PO BID Qty: 14 0RF amoxicillin-pot clavulanate 875-125 mg tablet 1 tab PO BID 5 Days Qty: 10 0RF Referrals: [facility] [place] [facility] [Provider Group] ( Recommend follow-up with hand surgeon for left index finger. may cosmetic work on finger.) [facility] [Outside] ( Left middle finger index laceration/skin avulsion) Stand Alone Forms: Work/School Release Interventions: ED Discharge Assessment Last Done: 12/23/23 18:49 Discharge Date/Time: 12/23/23 18:51 Print Language: Cape Verdean
[2023-12-23 18:29] VITALS: BP 128/86; PULSE 78; RESP 18; TEMP 36.8; O2SAT 100
[2023-12-23 18:49] VITALS: BP 128/86; PULSE 78; RESP 18; TEMP 36.8; O2SAT 100
== END 2023-12-23 18:51 | disposition home or self-care (01) ==
PROVIDERS: Emergency Provider Internal Medicine
DX: Z04.2 Encounter for examination and observation following work accident (principal); S61.213D Laceration without foreign body of left middle finger without damage to nail, subsequent encounter; S69.92XD Unspecified injury of left wrist, hand and finger(s), subsequent encounter; W29.8XXD Contact with other powered hand tools and household machinery, subsequent encounter
CPT/HCPCS: 17250; 29130; 99283